=== PATIENT | male | born 1955 | race Caucasian/White ===

== ENCOUNTER 2016-05-29 12:54 | Inpatient (IN) | payer OTHER, MEDICAID ==
[2016-05-29] VITALS (13 sets, daily range): BP systolic 108–136; BP diastolic 65–90; PULSE 85–119; RESP 18–33; O2SAT 95–100
[~2016-05-29] VITALS: Ht 182.9 cm; Wt 82.6 kg
[~2016-05-29 12:54] MED LIST: ALBU1.25 IH; ALBU18HF INH; AMLO10TA3 PO; ATOR20TA PO; ATRINH INH; CARI350T PO; CHOL200025 PO; CLOP75TA3 PO; CYAN500 PO; DILT240C89 PO; FUR20 PO; GABA-504 PO; IPRA3AMP IH; LEVO50TA6 PO; LIDO5CRE17 TOPICAL; MAGN250T29 PO; OMEG-38 PO; OXYC-466 PO; PANT40TA3 PO; THIO300C PO; TRAZ-115 PO; VENL75TA87 PO
--- NOTE | 2016-05-29 12:54 | ED.REPORT ---
HPI-General Illness Date of Service May 29, 2016 ED Provider: aCryl Dela Cruz MD Patient is a 60 year old male w/ a hx of HTN, TIA, COPD and pneumonia who presents to the ED via EMS due to SOB. He has never been on a breathing machine or ventilator. The patient called EMS yesterday and was given a duoneb with improvement in his breathing and he declined transport. Today he had 4 albuterol nebulizers prior to calling the EMS. Prior to EMS administration of duoneb his O2 sat was 75-80 after was high 90s on 3L O2. The patient admits to a cough with recent change in sputum color to dark greenish consistency but denies fever. The patient denies chest pain, pleuritic pain. He has noticed some abdominal pain which is worse with palpation. Nursing Notes Stated Complaint: RESPIRATORY DISTRESS Chief Complaint: Respiratory Distress Nursing Notes Reviewed: Yes Allergies: Coded Allergies: No Known Allergies (Unverified Allergy, Unknown, 05/29/16) Scheduled Alpha Lipoic Acid (Alpha Lipoic Acid) 300 Mg Capsule 300 MG PO DAILY Amlodipine (Amlodipine) 10 Mg Tablet 10 MG PO DAILY Atorvastatin (Lipitor) 20 Mg Tablet 20 MG PO HS Cholecalciferol (Vitamin D3) (Vitamin D3) 2,000 Unit Tablet 4,000 UNIT PO DAILY Clopidogrel Bisulfate (Plavix) 75 Mg Tablet 75 MG PO DAILY Cyanocobalamin (Vitamin B12) 1,000 Mcg Tablet 1,000 MCG PO DAILY Diltiazem ER (Diltiazem ER) 240 Mg Cap.er.24h 240 MG PO DAILY Fluticasone Propionate (Fluticasone Propionate Nasal) 16 Gm [place].susp 1 SPRAY NS BID Fluticasone/Salmeterol (Advair Hfa 230-21 Mcg Inhaler) 12 Gm Hfa.aer.ad 2 PUFF IH BID Levothyroxine (Levothyroxine) 50 Mcg Tablet 50 MCG PO QAM Magnesium Oxide (Magnesium) 250 Mg Tablet 250 MG PO DAILY [place]-3/Dha/Epa/Fish Oil (Fish Oil 1,000 mg Softgel) 1 Each Capsule 1 EACH PO DAILY Pantoprazole DR (Pantoprazole DR) 20 Mg Tablet.dr 40 MG PO QAM Pregabalin (Lyrica) 50 Mg Capsule 150 MG PO TID Venlafaxine ER (Venlafaxine ER) 75 Mg Tab.er.24 150 MG PO QAM Venlafaxine ER (Venlafaxine ER) 75 Mg Cap.er.24h 225 MG PO HS Scheduled PRN Albuterol HFA (Proair HFA) 8.5 Gm Hfa.aer.ad 2 PUFFS INH q4-6 hours PRN PRN For Shortness of Breath Albuterol Neb Soln (Albuterol Neb Soln) 1.25 Mg/3 Ml Vial.neb 1 VIAL IH QID PRN PRN For Shortness of Breath Carisoprodol (Soma) 350 Mg Tablet 350 MG PO TID PRN PRN SPASMS Furosemide (Furosemide) 20 Mg Tab 10 MG PO DAILY PRN PRN edema Ipratropium/Albuterol Sulfate (Iprat-Albut 0.5-3(2.5) mg/3 mL Inhalant Soln) 3 Ml Ampul.neb 3 ML IH Q6 PRN PRN For Shortness of Breath Nicotine 14 mg/24 hr Patch (Nicotine 14 mg/24 hr Patch) 1 Each Patch.td24 1 PATCH TRANSDERM DAILY PRN PRN prn Trazodone (Trazodone) 50 Mg Tablet 50 MG PO HS PRN PRN For Insomnia Do not combine with alcohol. oxyCODONE-Acetaminophen 10-325 mg (oxyCODONE-Acetaminophen 10-325 mg) 1 Each Tablet 1 TABLET PO q5-6 hours PRN PRN For Pain General Time Seen by MD: 12:55 Chief Complaint Breathing problem Hx Obtained From: EMS Arrived By: Ambulance Sudden in Onset?: Yes Onset Occurred: Just prior to arrival Symptom Duration: Since onset Location: : Abdomen (diffuse ): Chest (substernal described as heavy) Quality: Heaviness Recent Healthcare: Previous diagnosis, Prior workup Similar Sx Previous: Yes (similar breathing symptoms) Past Medical History Past Medical History sleep apnea neuropathy neck injury No history of NH, PE, or blood clot Reports: COPD, GERD, Hyperlipidemia, Hypertension, Transient ischemic attack Reports: Atrial fibrillation, Thyroid disease Family History Mom: healthy. Dad: (unknown). Smoking History Current Every Day Smoker Social History Alcohol Use: Denies alcohol use Drug Use: Denies drug use Ambulatory Status Independent (can not walk 1 block without stopping due to shortness of breath) Review of Systems Full Review of Systems Constitutional: Denies: Chills, Fever Eyes: Denies: Blurred bilateral, Visual loss bilateral Ears / Nose / Throat: Denies: Hearing loss bilateral, Nasal congestion, Sore throat Respiratory: Reports: Dyspnea on exertion, Prod cough, green, Denies: Hemoptysis, Pleuritic pain Cardiovascular: Reports: Chest pain, Dyspnea on exertion, Denies: Edema, Palpitations GI: Reports: Abdominal pain, Denies: Bloody/tarry stool, Constipation, Diarrhea, Hematemesis, Hematochezia , Melena, Nausea, Vomiting Male: Denies Dysuria, Denies Hematuria Musculoskeletal: Denies: Extremity swelling, Myalgia Hematologic: Denies Bleeding, Denies Bruising Endocrine: Denies: Weight gain, Weight loss Skin: Reports Diaphoresis, Denies Itching, Denies Rash, Denies Unexplained bruises Allergy / Immune: Denies: Hives, Itching, Rhinorrhea Neurologic: Denies: Change LOC, Dizziness, Focal weakness, Headache, Lightheaded, Numbness, Slurred speech, Spinning sensation, Vision change Psychiatric: Denies: Change mental status, Confusion Complete sys rev & neg: except as marked. Physical Exam Vital Signs Vital Signs Date Time Temp Pulse Resp B/P Pulse Ox O2 Delivery O2 Flow Rate FiO2 05/29/16 15:23 36.4 93 22 113/72 98 Venturi Mask 6 05/29/16 15:03 93 22 113/72 98 Venturi Mask 6 05/29/16 14:42 98 25 108/77 98 Venturi Mask 6 05/29/16 14:11 95 25 113/70 98 Venturi Mask 6 05/29/16 13:43 96 20 126/84 100 Venturi Mask 05/29/16 13:41 98 28 98 OxyMask 3 05/29/16 12:53 36.4 119 33 136/86 100 7 Initial VS: Reviewed General/Constitutional: Awake, Alert, Not toxic appearing Distress / Hydration: Positive: Distress moderate Appearance / Presentation: Positive: Appears older than age, Debilitated, Frail , Ill appearing/not toxic Head / Eyes: Atraumatic, Normocephalic, PERRL, EOMI, Conjunctiva NL ENT: Airway patent, Mucous membranes moist, Pharynx NL Neck: Supple, No meningismus, Full range of motion, No swelling, Non-tender, No masses, No JVD, No tracheal deviation Respiratory / Chest: No rhonchi, No stridor, No chest tenderness, No chest wall deformity Resp Distress / Stridor: Positive: Resp distress severe Diminished Breath Sounds: Positive: Decreased bilateral Wheezing / Retractions: Positive: Accessory muscle use sev, Intercostal retractions, Retractions severe, Wheezing mild Cardiovascular: Regular rhythm, Heart sounds NL, No murmurs, Cap refill not delayed, Peripheral circulation NL, Pulses = bilaterally Heart Rate / Rhythm: Positive: Tachycardia no bilateral leg edema Abdomen: Soft, No rebound, BS normoactive, No distention, No palpable mass, No pulsatile mass Tenderness/Guarding/Rebound: Positive: Guarding voluntary, Tender diffuse Organomegaly / Mass / Hernia: Negative: Aortic bruit, Hepatomegaly, Mass present, Pulsatile mass, Splenomegaly Upper Extremities Upper Extremity / MS: Inspection NL, No swelling, Non-tender, No erythema, No deformity, Neurologic intact, Vascular intact Wrist / Hand: No swelling mild clubbing of nails bilaterally Lower Extremity / Pelvis / MS: Inspection NL, No swelling, Non-tender, No erythema, No deformity, Neurologic intact, Vascular intact, No edema Skin: Color NL, No rash, Warm, Turgor NL, No swelling Color / Condition: Positive: Diaphoresis present Neurologic: Oriented X3, No motor deficits, CN II - XII intact only able to speak in short sentences due to SOB Interpretation & Diagnostics Lab Results Interpretation Result Diagram: 05/30/16 0220 05/30/16 0855 Test 05/29/16 13:08 Hemoglobin A1c 5.3% (4.8-5.6) Pro-B-Type Natriuretic Peptide 1004pg/mL (0-210) Procalcitonin 0.09ng/mL (0.00-0.08) Thyroid Stimulating Hormone (TSH) 1.410uIU/mL (0.450-4.500) X-Ray Chest Interpretation Chest Xray Interpretation: IMPRESSION: Lung volumes are increased suggesting COPD, correlate with pulmonary functions test. Dictated by: Sergio WEBB Interpreted: Jerica Rodas MD on 05/29/2016 at 13:23 Transcribed by: DOTTIE on 05/29/2016 at 13:24 Interpretation / Wet Read by: Interpret - Radiologist Re-Eval/Medical Decision Med Decision/Clinical Course 60yoM with COPD, TIA, and Afib presents with stubsternal chest heaviness with SOB and increased sputum production. Physical exam has tachypnea with decreased breath sounds bilaterally with use of accessory muscles, tachycardia without murmur good pulses in extremities without cyanosis or edema. Labs show leukocytosis, mild hypernatremia, elevated troponin and pro-BNP, mild elevated procalcitonin, and lactic acidosis. ABG shows normal pH with normal CO2 and mild decreased O2 and normal bicarb consistent with respiratory alkalosis and metabolic acidosis. Patient has clinic signs of COPD exacerbation and will be started on Methylprednisolone 125mg as well as Rocephin and Zithromycin for possible bacterial infection component. Elevated troponin without EKG changes consistent with NSTEMI, spoke with cardiology and patient is not considered a coronary angiography/angioplasty candidate due to his severe COPD with continued smoking. Patient is already on Plavix daily for TIA started on Heparin drip for 24 hours and start aspirin for dual platelet therapy. Patient should also be continued on PPI for GI bleeding risk. Admit to medicine for COPD and consider stress test when COPD controlled. Source of Hx: Old records, EMS, Family Consultation : Referral / Consult Name: Logan Ornelas MD Consulted With: Hospitalist Call Returned at: 14:20 Plan Rep: Agrees with eval, Agrees with plan Note: Case discussed. Counseled Regarding: Diagnosis, Lab results, Need for follow-up, Need for admission Discharge & Departure Primary Impression: COPD exacerbation Additional Impressions: NSTEMI (non-ST elevated myocardial infarction) Metabolic acidosis Respiratory failure Pneumonia Sepsis Ruled Out: Stroke Disposition: ADMITTED TO HOSPITAL Discharge Condition All VS Reviewed: Yes Condition: Critical Referrals: Kaleb Billings DO (PCP) Crit Care Except Billable Proc Time Spent: 30-74 minutes Services Performed: Patient management by me, Time spent at bedside, Reviewing test results, Reviewing imaging, Discussing patient care, Documentation in record, Time with fam/surrogate Attending Statement patient seen and examined upon arrival in the ED with a [facility] team called. Discussed care, and plan with Dr Moody with direct and immediate oversight of critical care time -decisions, order and intervention. Presented with acute respiratory distress with fairly rapid turn around with multiple nebulizers. Initial presumed dx was CAP, possible sepsis in the setting of acute COPD exacerbation. Nebs, fluids, abx, cultures, ABG and possibility of progression to intubation started. Routine workup also reveals an NSTEMI. Hep gtt started and cardiology involved. Suspect initial event was severe respiratory distress due to acute COPD exacerbation causing excess hypoxia and creating excessive demand and eventual cardiac ischemia that exacerbated the respiratory issues. Initial procalcitonin does not suggest severe infection - will need to sort this out as an inpt with abx started in the ER on arrival. discussion of CODE and intubation status on arrival. Pt would agree to BIPap but would want to discuss intubation further, even in light of imminent respiratory failure or . Agree with aggressive multifactorial initial approach and plan. copies to: Kaleb Billings Shawna L MD May 29, 2016 12:54 BRUNA MENDOZA May 29, 2016 13:01 Edy Moody DO May 29, 2016 15:28 108U/L (25-150) Troponin T 0.145ug/L (0.0-0.011) Pro-B-Type Natriuretic Peptide 1004pg/mL (0-210) Total Protein 7.1g/dL (6.4-8.4) Albumin 4.5g/dL (3.4-5.0) Procalcitonin 0.09ng/mL (0.00-0.08) X-Ray Chest Interpretation Chest Xray Interpretation: IMPRESSION: Lung volumes are increased suggesting COPD, correlate with pulmonary functions test. Dictated by: Sergio Rosales RRA Interpreted: Jerica Rodas MD on 05/29/2016 at 13:23 Transcribed by: DOTTIE on 05/29/2016 at 13:24 Interpretation / Wet Read by: Interpret - Radiologist Re-Eval/Medical Decision Med Decision/Clinical Course 60yoM with COPD, TIA, and Afib presents with stubsternal chest heaviness with SOB and increased sputum production. Physical exam has tachypnea with decreased breath sounds bilaterally with use of accessory muscles, tachycardia without murmur good pulses in extremities without cyanosis or edema. Labs show leukocytosis, mild hypernatremia, elevated troponin and pro-BNP, mild elevated procalcitonin, and lactic acidosis. ABG shows normal pH with normal CO2 and mild decreased O2 and normal bicarb consistent with respiratory alkalosis and metabolic acidosis. Patient has clinic signs of COPD exacerbation and will be started on Methylprednisolone 125mg as well as Rocephin and Zithromycin for possible bacterial infection component. Elevated troponin without EKG changes consistent with NSTEMI, spoke with cardiology and patient is not considered a coronary angiography/angioplasty candidate due to his severe COPD with continued smoking. Patient is already on Plavix daily for TIA started on Heparin drip for 24 hours and start aspirin for dual platelet therapy. Patient should also be continued on PPI for GI bleeding risk. Admit to medicine for COPD and consider stress test when COPD controlled. Source of Hx: Old records, EMS, Family Consultation : Referral / Consult Name: Logan Ornelas MD Consulted With: Hospitalist Call Returned at: 14:20 Plan Rep: Agrees with eval, Agrees with plan Note: Case discussed. Counseled Regarding: Diagnosis, Lab results, Need for follow-up, Need for admission Discharge & Departure Primary Impression: COPD exacerbation Additional Impressions: NSTEMI (non-ST elevated myocardial infarction) Metabolic acidosis Ruled Out: Stroke Disposition: ADMITTED TO HOSPITAL Discharge Condition All VS Reviewed: Yes Condition: Critical Referrals: Kaleb Billings DO (PCP) copies to: Kaleb Billings Shawna L MD May 29, 2016 12:54 BRUNA MENDOZA May 29, 2016 13:01 Edy Moody DO May 29, 2016 15:28
[2016-05-29] MEDS ORDERED: 0.9% Sodium Chloride 1,000 ML IV ONE (13:01)
[2016-05-29] MEDS ORDERED: MethylprednisoLONE Sodium Succinate 62.5 mg/mL 2 mL Inj IVPUSH ONE (13:05)
[2016-05-29] MEDS ORDERED: Albuterol-Ipratropium 3 mL Inhalation Solution NEB ONE (13:05)
[2016-05-29] MEDS ORDERED: Azithromycin Inj 500 MG in Dextrose 5% w/Vial Mate 250 ML IV ONE (13:05)
[2016-05-29] MEDS ORDERED: Magnesium Sulf 2 Gm/50mL Water 2 GM in IV Premix 1 EACH IV ONE (13:05)
[2016-05-29] MEDS ORDERED: cefTRIAXone Inj 2,000 MG in Dextrose 5% Minibag Plus 50 ML IV ONE (13:05)
[2016-05-29 13:12] LABS: BASOPHILS % (AUTO) 0.2 % (0-3); EOSINOPHILS % (AUTO) 0.7 % (0-5); MONOCYTES % (AUTO) 12.6 % (4-12); Mean Corpuscular Hemoglobin 29.2 pg (27.0-35.0); Mean Corpuscular Volume 91.1 fL (81-100); NEUTROPHILS % (AUTO) 67.7 % (40-74); Platelet Count 279 bil/L (150-400)
--- NOTE | 2016-05-29 13:24 | DRSVH ---
PROCEDURE: X-RAY CHEST ONE VIEW, PORTABLE ([id number]) INDICATIONS: pnuemonia TECHNIQUE: One view of the chest was acquired. COMPARISON: [facility], CR, XR CHEST 2VW, 07/07/2015, 12:32. FINDINGS: Surgical changes and devices: None. Lungs and pleura: No pleural effusions or pneumothorax. Lungs are clear. Lung volumes are increase d with flattening of the hemidiaphragms suggesting COPD. Mediastinum: Mediastinal contours appear normal. Heart size is normal. Bones and chest wall: No suspicious bony lesions. Overlying soft tissues appear unremarkable. IMPRESSION: Lung volumes are increased suggesting COPD, correlate with pulmonary functions test. Dictated by: Sergio Rosales RRA Interpreted: Jerica Rodas MD on 05/29/2016 at 13:23 Transcribed by: DOTTIE on 05/29/2016 at 13:24 Approved by: Jerica Rodas MD, PhD on 05/29/2016 at 17:02
--- NOTE | 2016-05-29 13:39 | ABG ---
DateTimeAnalyzed 13:34:00 -_ pH ____7.410 - 7.350 7.450 pCO2 ___44.6__ -mmHg 35.0 45.0 pO2 ___72.4__ -mmHg 69.0 116 HCO3- ___27.7__ -mmol/L 22.0 26.0 ABE ____3.1__ -mmol/L -2.0 2.0 tHb ___13.2__ -g/dL O2Hb ___88.0__ -% COHb ____7.7__ -% MetHb ____0.9__ -% sO2 ___96.3__ -% 25.0 FIO2 ___40.0__ -% Drawn By MT - Date/Time Notified____ 13:39:00 -_ Liter_Flow ____3.0__ -L/min Oxygen Device 1 __OXYMASK - Notified By JJ - Notified Whom DO HASANDRAS - B 748 -mmHg tO2 ___16.4__ -Vol% Herber test _Positive -
[2016-05-29 13:58] LABS: Magnesium 2.2 mg/dL (1.6-2.6)
[2016-05-29 14:00] LABS: TROPONIN T 0.145 ug/L (0.0-0.011)
[2016-05-29] MEDS ORDERED: Heparin 25K Unit/500mL 0.45 NS 25,000 UNIT in IV Premix 1 EACH IV SCH ×2 (14:20→14:55)
[2016-05-29] MEDS ORDERED: Heparin 5,000 Unit/mL Inj IVPUSH PRN (14:20)
[2016-05-29] MEDS ORDERED: 0.9% Sodium Chloride 1,000 ML IV SCH (14:46)
[2016-05-29] MEDS ORDERED: Alum-Mag Hydrox-Simeth 30 mL Suspension PO PRN (14:50)
[2016-05-29] MEDS ORDERED: Ondansetron 2 mg/mL 2 mL Inj IVPUSH PRN (14:50)
[2016-05-29] MEDS ORDERED: Atropine 1 mg/10 mL (Code) Syringe IVPUSH PRN (14:50)
--- NOTE | 2016-05-29 15:26 | PCM.HPMED ---
Subjective Date of Service May 29, 2016 Primary Provider: Admitting Physician: Primary Care Physician: Kaleb Billings DO Attending Physician: Admit Status: From the Emergency Department, Full Admit Chief Complaint: Chest Pain, Shortness of Breath History of Present Illness: Patient is a year old male with a past medical history of Essential Hypertension , Hyperlipidemia, Transient Ischemic Attack, COPD, GERD, Atrial Fibrillation, Chronic Back Pain, and Tobacco Use Disorder. He presents to the ER at [facility] complaining of shortness of breath and chest pain. Pt states his symptoms began last night. Pt states his symptoms awoke him from sleep. He states his symptoms began with shortness of breath. He denies any recent cough, fever or chills. He states he got up from bed to go to the restroom, and developed a cramping heavy pain in the center of his chest. He reports this pain is non radiating. Pt states the pain was associated with significant diaphoresis. He denies any associated nausea, vomiting, palpitations, dizziness, and abdominal pain. Pt states the pain went away last night after a few minutes, and he again developed the pain early this morning along with shortness of breath. Pt has no other complaints or concerns at this time. Review of Systems: All systems reviewed and are negative except for what has already been mentioned in the HPI. Allergies Coded Allergies: No Known Allergies (Unverified Allergy, Unknown, 05/29/16) Home Medications 1. Diltiazem 2. Albuterol 3. Plavix 4. Aspirin 5. Duo-Neb 7. Amlodipine 8. Pantoprazole 9. Atorvastatin 10. Gabapentin 11. Levothyroxine 12. Effexor PMH 1. Essential Hypertension 2. Atrial Fibrillation 3. Hyperlipidemia 4. Hypothyroidism 5. COPD 6. Tobacco Use Disorder 7. Depression 8. GERD 9. Chronic Back Pain Family History Mother - No known medical problems Father - in 60s, unknown cause Social History Hx Alcohol Use: No Hx Substance Use: Yes (edible cannabis- occasionally) Hx Tobacco Use: Yes Smoking Status: Current Every Day Smoker, Light Tobacco Smoker Living Arrangement: with Family Exam Vital Signs Vital Sign - Last Date Time Temp Pulse Resp B/P Pulse Ox O2 Delivery O2 Flow Rate FiO2 05/29/16 14:42 98 25 108/77 98 Venturi Mask 6 05/29/16 12:53 36.4 Exam GENERAL: NAD, Pt laying in bed comfortably HEENT: AT/NC, PERRLA, EOMI, Mucus Membranes are moist CARDIAC: RRR; No M/R/G PULM: Left basilar wheezes present, right lung is clear to auscultation ABD: Soft, Nontender, Nondistended, Positive bowel sounds in all quadrants, No Hepatosplenomegaly appreciated EXT: No C/C/E; No calf tenderness bilaterally SKIN: Warm, Dry, [place], and Intact NEURO: Alert and oriented x3; Following all commands PSYCH: Normal mood and affect Lab and Diagnostics Result Diagram: 05/29/16 1308 05/29/16 1308 X-Rays, CTs and MRIs X-RAY CHEST ONE VIEW, PORTABLE INDICATIONS: pnuemonia TECHNIQUE: One view of the chest was acquired. COMPARISON: [facility], CR, XR CHEST 2VW, 07/07/2015, 12:32. FINDINGS: Surgical changes and devices: None. Lungs and pleura: No pleural effusions or pneumothorax. Lungs are clear. Lung volumes are increased with flattening of the hemidiaphragms suggesting COPD. Mediastinum: Mediastinal contours appear normal. Heart size is normal. Bones and chest wall: No suspicious bony lesions. Overlying soft tissues appear unremarkable. IMPRESSION: Lung volumes are increased suggesting COPD, correlate with pulmonary functions test. Assessment & Plan Patient is a 60 year old male with a past medical history of Essential Hypertension, Atrial Fibrillation, TIA, COPD, Tobacco Use Disorder, GERD, and Chronic Back Pain. 1. Non ST-Elevation VA - Admit to PCU - Start Aspirin daily - Continue home Plavix - Troponin is positive - Check CKMB and Troponin q 6 hours x4 - Telemetry monitoring - Start Metoprolol 12.5 mg PO BID - SL Nitroglycerin PRN chest pain - IV Morphine PRN for refractory chest pain - Supplemental O2 to keep SpO2 greater than 92% - Start Atorvastatin 80 mg PO daily - Check fasting lipid panel in AM - Start Heparin drip - Cardiology on board and does not feel pt requires a cardiac catheterization at this time - Will order an ECHO - Will order a NM stress test for the AM - NPO after midnight for stress test 2. COPD, Acute Exacerbation - Start IV Solu-Medrol 125 mg q 6 hours - Duo-Neb breathing treatments q 6 hours scheduled - Supplemental O2 to keep SpO2 greater than 92% 3. Hypernatremia - Free Water Deficit calculated at 2.0 liters - Will give pt D5W at 140 mL/hour for 14 hours - Recheck BMP in AM 4. Essential Hypertension - Pts home medications have not yet been reconciled - Restart home meds once reconciliation completed 5. Atrial Fibrillation, Paroxysmal - Pt is on Diltiazem at home, per notes in [facility] - Restart home meds once medication reconciliation complete 6. Hyperlipidemia - Pt started on Atorvastatin 80 mg PO daily - Check fasting lipid panel in AM 7. Hx of TIA - Continue home Plavix 8. Hypothyroidism - Continue home Synthroid once medication reconciliation completed 9. GERD - IV Famotidine CODE STATUS: FULL, per discussion with patient at bedside Cholo Haji MD May 29, 2016 15:26
[2016-05-29] MEDS: Sodium Chloride LOK Flush 10 mL Syringe IVFLUSH SCH ×2 (16:09→20:15)
[2016-05-29] MEDS: Dextrose 5% 1,000 ML IV SCH ×2 (16:16→22:42)
[2016-05-29] MEDS ORDERED: PREG50CA PO (16:30)
[2016-05-29] MEDS ORDERED: FLUT16SP NS (16:32)
[2016-05-29] MEDS ORDERED: TRAM50TA2 PO (16:42)
[2016-05-29] MEDS ORDERED: PANT20TA2 PO (16:42)
[2016-05-29] MEDS ORDERED: FLUT12AE6 IH (16:42)
[2016-05-29] MEDS ORDERED: VENL75CA95 PO (16:42)
[2016-05-29] MEDS ORDERED: NICO1PAT5 TRANSDERM (16:42)
--- NOTE | 2016-05-29 17:47 | NUR ---
Arrived He arrived at 1545 and was able to slide himself from the gurney to the bed. He had some shortness of breath with activity and occasionally at rest when anxious. He was settled into his room and shown how to use the call light and work the bed controls. Due to his fatigue and being a somewhat poor historian his admit and medical history will be completed by his who just arrived a few minutes ago. Care continues.
[2016-05-29] MEDS ORDERED: Albuterol 2.5 mg/3 mL Inhalation Solution NEB PRN (18:35)
[2016-05-29] MEDS: Albuterol-Ipratropium 3 mL Inhalation Solution NEB SCH (20:00)
[2016-05-29] MEDS: Famotidine Inj 50 ML IV SCH (20:14)
[2016-05-29] MEDS: MethylprednisoLONE Sodium Succinate 62.5 mg/mL 2 mL Inj IVPUSH SCH (20:15)
--- NOTE | 2016-05-29 20:28 | NUR ---
Tremulous Pt has restless legs. He is very tremulous. He states this has been going on 'since he got here' due to the treatments. He states, "They've been pumping full of albuterol" He denies pain. He is compliant with his call light. Care ongoing.
[2016-05-29 20:29] LABS: APPEARANCE,URINE CLEAR (CLEAR,HAZY); COLOR,URINE STRAW (YELLOW)
[2016-05-29 20:30] LABS: OCCULT BLOOD,URINE SMALL (NEGATIVE); PH,URINE 6.5 (5.0-8.0); UROBILINOGEN,URINE NORMAL (NORMAL)
[2016-05-29] MEDS: Heparin 5,000 Unit/mL Inj IVPUSH PRN (21:50)
--- NOTE | 2016-05-29 22:12 | CONS ---
[address] [address] CONSULTATION REPORT PATIENT: MEAGAN ABBOTT : 1955 MR#: [id number] ADMIT: 05/29/2016 JOB ID: [id number] DATE OF SERVICE: CHIEF COMPLAINT: Chest discomfort, shortness of breath. REFERRED BY: Miguel Haji MD. HISTORY OF PRESENT ILLNESS: This is a very pleasant gentleman with known history of severe COPD, prior TIAs and chronic tobacco use. He came to the emergency department complaining of shortness of breath which began yesterday. Last night, he also noted some discomfort in his chest. It was accompanied by diaphoresis. He describes it as heaviness. Currently, he is pain free. He is denying any chest discomfort, pressure, tightness. He states that he is used to shortness of breath. He is chronically short of breath. He uses home oxygen. His functional capacity is severely limited. He can barely walk 20 feet without getting short of breath. However, the chest discomfort he experienced yesterday was new. He was admitted to the hospital with exacerbation of chronic obstructive pulmonary disease. Routine blood work showed mildly elevated troponin. I was asked to see him in consultation. REVIEW OF SYSTEMS: Comprehensive review of system was done and is unremarkable. Pertinent negatives are no GI or bleeding. His TIA episode was over seven years ago when he presented with numbness in his face. There is no history of loss of limb control. MEDICATIONS AT HOME: Diltiazem, albuterol, Plavix, aspirin, DuoNebs, amlodipine, pantoprazole, atorvastatin, gabapentin, Synthroid, . PAST MEDICAL HISTORY: Hypertension, atrial fibrillation, dyslipidemia, hypothyroidism, COPD, depression, GERD and chronic back issues. PERSONAL HISTORY: Nondrinker. He smokes about half a pack a day. 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 He used to smoke two packs a day. FAMILY HISTORY: Noncontributory. PHYSICAL EXAMINATION: A middle-aged man who looks older than his stated age, in moderate respiratory distress, breathing at around 30 per minute. Can speak short sentences. Neck: Supple, using accessory muscles. No JVD. Chest: Occasional wheezes. Heart sounds: S1, S2 are regular. No gallops. Abdomen: Soft. Extremities: Negative for CCE. Abdomen: Mild epigastric tenderness. Extremities: Dorsalis pedis is bilaterally palpable. Chest x-ray suggestive of pneumonia. Lab data reviewed. Creatinine is normal. White count is elevated at 16.3. Troponin as mentioned was mildly elevated. ASSESSMENT AND PLAN: This gentleman presents with exacerbation of chronic obstructive pulmonary disease. His mildly elevated troponin could be a result of demand ischemia or a [id number] myocardial infarction. At this point, I would recommend treating his COPD and possible underlying pneumonia. Once he is stable from his lung disease, a stress test may be requested. If the stress test shows large area of ischemia I would rediscuss with the patient the issue of interventional approach. Otherwise, I would recommend continued management with conservative measures. I have discussed this with the patient. He is not inclined to quit smoking. He states he enjoys smoking. Given his severe COPD and ongoing smoking I feel that his long-term prognosis is going to be dictated by his underlying lung disease and not his coronary artery disease; and hence, I would recommend medical therapy for his coronary artery disease. I would be happy to follow the patient along with you.
[2016-05-29 22:27] LABS: TROPONIN T 0.133 ug/L (0.0-0.011)
--- NOTE | 2016-05-29 22:32 | NUR ---
Restlessness Pt reports, "I'm jumping out of my skin" He is visibly agitated. VS taken. BP 125/65. HR 85. RR 32 95% on 3L oxymask. Pt takes PRN oxycodone, trazodone, and tramadol as well as scheduled lyrica. Reported symptoms and medications to night MD Medications ordered. Pt updated on cares.
[2016-05-29] MEDS: oxyCODONE-Acetamin 10-325 mg Tablet PO PRN (23:41)
--- NOTE | 2016-05-29 23:50 | NUR ---
Pain Pt reports neck pain of a 4. Given one percocet. Pt understands he is NPO after MN for tests. Appears less restless. He states he is starting to 'feel better" Care ongoing
[2016-05-30] VITALS (13 sets, daily range): BP systolic 112–142; BP diastolic 60–87; PULSE 60–118; RESP 18–28; O2SAT 91–98
[2016-05-30] MEDS: Albuterol-Ipratropium 3 mL Inhalation Solution NEB SCH ×4 (02:12→20:41)
[2016-05-30] MEDS: MethylprednisoLONE Sodium Succinate 62.5 mg/mL 2 mL Inj IVPUSH SCH ×3 (02:33→18:06)
--- NOTE | 2016-05-30 02:43 | NUR ---
Dyspnea/Anxiety Pt awakened from sleep for lab draws. He became very panicky stating "I can't breathe" after using the urinal. Diaphoretic. Soaked gown with sweat. RT here and gave neb treatment (scheduled) Pt's breath sounds are decreased with exp wheezing. VS stable.Reported symptoms and vitals to MD. Pt is currently sitting up at 90degrees. Eyes closed. Appears more relaxed.
[2016-05-30 02:49] LABS: BASOPHILS % (AUTO) 0 % (0-3); EOSINOPHILS % (AUTO) 0 % (0-5); MONOCYTES % (AUTO) 2.1 % (4-12); Mean Corpuscular Hemoglobin 28.9 pg (27.0-35.0); Mean Corpuscular Volume 89.4 fL (81-100); NEUTROPHILS % (AUTO) 88.9 % (40-74); Platelet Count 240 bil/L (150-400)
[2016-05-30] MEDS ORDERED: Nitroglycerin 2% 1 Gm Ointment TOPICAL ONE (02:50)
[2016-05-30] MEDS: Heparin 5,000 Unit/mL Inj IVPUSH PRN (03:31)
[2016-05-30 03:53] LABS: TROPONIN T 0.081 ug/L (0.0-0.011)
--- NOTE | 2016-05-30 05:23 | NUR ---
Resp Pt resting quietly. HOB at 30degrees. Non distressed breathing. Will cont to monitor
[2016-05-30] MEDS ORDERED: 0.9% Sodium Chloride 250 ML ONE (09:29)
[2016-05-30] MEDS: Famotidine Inj 50 ML IV SCH ×2 (09:53→20:46)
[2016-05-30] MEDS: Sodium Chloride LOK Flush 10 mL Syringe IVFLUSH SCH ×2 (09:53→17:13)
[2016-05-30] MEDS: oxyCODONE-Acetamin 10-325 mg Tablet PO PRN ×3 (09:54→20:47)
--- NOTE | 2016-05-30 10:35 | DRSVH ---
[facility] [address] [place] [address] Echocardiogram Report Name: MEAGAN ABBOTT Date: Height: 72 in Hospital Exam Location: [facility] Weight: 189 lb Gender: Male BSA: 2.1 m2 : 1955 Age: 60 yrs BP: 131/87 mmHg Reason For Study: CHEST PAIN, NSTEMI Ordering Physician: HOSPITALIST [facility] Performed By: Jacque lord Referring Physician: DR. Volodymyr ORNELAS, DR. WONG Interpretation Summary Left ventricular size is at the upper limits of normal. There is mid anterolateral wall hypokinesis. There is apical lateral wall hypokinesis. Left ventricular ejection fraction is estimated to be .55. There is mild tricuspid regurgitation. The right ventricular systolic pressure is estimated at 36 mmHg assuming a right atrial pressure of 8 mm Hg. There is no significant valvular heart disease. Procedure: A two-dimensional transthoracic echocardiogram with color flow and Doppler was performed. The study quality was technically adequate. There is no prior echocardiogram noted for this patient. The patient was very SOB and unable to adjust breathing without coughing. The patient was in sinus during the exam. Left Ventricle: There is normal left ventricular wall thickness. Left ventricular size is at the upper limits of normal. Left ventricular ejection fraction is estimated to be .55. There is mid anterolateral wall hypokinesis. There is apical lateral wall hypokinesis. Right Ventricle: The right ventricle is normal in size and function. Atria: Both atria are normal in size. There is no Doppler evidence for an atrial septal defect. Mitral Valve: The mitral valve leaflets appear normal. There is no evidence of stenosis, fluttering, or prolapse. There is trace mitral regurgitation. Aortic Valve: The aortic valve is trileaflet. The aortic valve opens well. No aortic regurgitation is present. Tricuspid Valve: The tricuspid valve leaflets are thin and pliable. There is mild tricuspid regurgitation. The right ventricular systolic pressure is estimated at 36 mmHg assuming a right atrial pressure of 8 mm Hg. Pulmonic Valve: The pulmonic valve is not well seen, but is grossly normal. There is no pulmonic valvular regurgitation. Great Vessels: The aortic root is mildly dilated. The ascending aorta is mildly enlarged. The pulmonary artery is normal size. The IVC is dilated (diameter is greater than 2.1 cm) yet it collapses greater than 50% with a sniff. This suggests a right atrial pressure of 8 mm Hg. Pericardium/ Pleura There is no pericardial effusion. There is no pleural effusion. MMode/2D Measurements & Calculations LVIDd: 5.8 cm LA dimension: 3.5 cm RA long axis LVOT diam LVIDs: 3.3 cm FS: 42.7 % LA A2 area: 22.7 cm RA area AoV Opening EPSS: 0.51 cm LA A4 area: 21.9 cm IVSd: 0.97 cm LA length (vol): 5.8 cm: 19.4 cm Ao root diam LVPWd: 1.1 cm LA vol: 73.5 ml RA vol LA vol index : 58.2 ml asc Aorta RA Diam: 3.8 cm : 28.0 mm/ IVC diam: 2.6 cm RVDd major : 7.4 cm LV carlson. diameter/BSA LV sys. diameter/BSA RVD1 (basal) RVD2 (mid) (cm/m^2): 2.8 (cm/m^2): 1.6 : 3.3 cm Doppler Measurements & Calculations Ao V2 max MV E max adriel MV E/A: 1.7 TR max adriel : 144.5 cm/sec : 78.4 cm/sec Med Peak E' Adriel : 263.7 cm/sec Ao max P.4 mmHg MV A max adriel TR max PG Ao mean P.4 mmHg : 45.8 cm/sec E/E' med: 9.3 : 27.8 mmHg LVOT Max Adriel MV P1/2t Lat Peak E' Adriel PA V2 max : 111.7 cm/sec : 75.8 msec : 104.7 cm/sec LACHELLE(I,D): 3.7 cm E/E' lat: 9.0 PA mean PG sev ratio: 0.78 E/e' average: 9.2 MV A dur: 0.14 secPA Accel Time : 0.15 sec MV P1/2t max adriel Ao V2 mean LV V1 max PG PA V2 mean : 100.4 cm/sec : 66.9 cm/sec MVA(P1/2t): 2.9 cm2 Ao V2 VTI: 29.5 cmLV V1 VTI: 23.1 cm LACHELLE(V,D): 3.7 cm2 LACHELLE indexed to BSA (cm^2/m^2): 1.8 Electronically signed by: Logan Ornelas on Reading Physician:05/30/2016 10:34 AM
[2016-05-30] MEDS: Polyethylene Glycol (PEG) 17 Gm Powder PO PRN (10:37)
[2016-05-30] MEDS: cefTRIAXone Inj 2,000 MG in Dextrose 5% Minibag Plus 50 ML IV SCH (10:39)
[2016-05-30] MEDS: Azithromycin Inj 500 MG in Dextrose 5% w/Vial Mate 250 ML IV SCH (11:35)
--- NOTE | 2016-05-30 11:45 | NUR ---
Tele HR Pt was in NSR this am with an inverted T wave, HR 63. Gave scheduled am dose of 12.5 Metoprolol. HR is now in the high 40's-50's with a more pronounced peaked inverted T wave. Cardiology had already looked at his rhythm this am but will inform MD and cardiology of changes. Pt is resting comfortably in bed sound asleep.
--- NOTE | 2016-05-30 12:54 | PCM.PNCARD ---
Subjective Date of service May 30, 2016 Chief Complaint Dyspnea and chest pain History of Present Illness Mr Garcia -is a 60 year-old male with long-standing history of COPD secondary to 40+ years of tobacco use. Remote history is significant for TIA (reportedly in the last 10 years) and possible atrial fibrillation for which patient does not remember specifics. Patient claims he is on home oxygen and has very limited ability to exercise or walk secondary to his breathing. Patient presented to the emergency room with exacerbation of COPD and transient chest pressure. Patient was found to have slightly elevated troponins along with his dyspnea. Subjective: #General- patient denies fever or chills or recent infections. #HEENT- admits to mild occipital headache especially with coughing, denies visual change, sore throat, nasal congestion, ear pain. #Neck- has chronic neck pain, no difficulty swallowing. #Chest- patient admits to significant shortness of breath, improved since admission. No significant sputum production, mild cough is present. #Cardiovascular- currently denies chest pain, palpitation, edema, lightheadedness or dizziness, syncope. #Abdomen- patient admits to mild right sided abdominal discomfort, admits to constipation. No nausea or vomiting. Appetite mildly depressed. #Musculoskeletal- chronic neck discomfort. #Neurologic- no significant focal issues #Integument- denies rash or lesion. #Psychiatric- no acute issues, he admits to prostration with recurrent respiratory distress and history of tobacco. Exam Vital Signs Vital Sign - Last Date Time Temp Pulse Resp B/P Pulse Ox O2 Delivery O2 Flow Rate FiO2 05/30/16 10:59 60 05/30/16 09:58 36.5 22 119/60 91 OxyMask 3.00 Intake and Output 05/29/16 05/29/16 05/30/16 Cumulative From/Thru 15:00 23:00 07:00 05/29/16 12:53 - 05/30/16 05:49 Intake Total 1000 ml 484 ml 1920 ml 3404 ml Output Total 800 ml 3400 ml 4200 ml Balance 1000 ml -316 ml -1480 ml -796 ml Intake Oral 0 ml 300 ml 300 ml IV Total 1000 ml 484 ml 1620 ml 3104 ml Output Urine Total 800 ml 3400 ml 4200 ml # Bowel Movements 0 0 Additional Information: #General- vision sitting comfortably in bed on oxygen mask in no apparent distress though respirations are rapid. #HEENT- eyes are clear, pupils dilated bilaterally but responsive, pharynx thick postnasal drip minimal erythema mucosa moist face symmetric #Neck supple without significant adenopathy, nontender #Chest- breathing with the assistance of supplemental O2 /mask ,chest wall symmetrical, lungs are are clear at time of exam, the crackles wheezes or rubs. No retractions, respiratory rate some weight elevated. #Cardiovascular- heart is regular rate and rhythm, heart sounds are somewhat distant, no obvious murmur or gallop. Distal pedal pulses 2+ bilaterally, no significant edema, no JVD appreciated. #Abdominal - soft without mass, mild tenderness right upper and lower quadrants without rebound. #Neurologic- alert and oriented 4, cranial nerves II through XII grossly intact , pupils are dilated bilaterally, extremities are nonfocal. #Psychiatric- no mood appears stable and appropriate. #Integument- benign without obvious rash or lesion. Lab and Diagnostics Labs Troponin 0.106 (up from 0.081) Cholesterol: Total, 136, triglycerides 47, LDL 48.6, HDL 78. CKMB 9.1 (8.9) Result Diagram: 05/30/1621905/30/16219 12-lead ECG EKG from the chart shows nonspecific T-wave changes laterally, borderline first- degree AV block, borderline prolonged QT. No other acute ischemic changes appreciated. Additional Diagnostics: Echocardiogram- interpretive summary LV upper limits of normal, positive mid anterior/lateral hypokinesis, EF 55%. Mild TR, RV systolic pressure 36 mmHg, RA pressure assumed 8 mmHg. No other significant valvular disease. Assessment & Plan Assessment This is a 60-year-old male with long-standing history of tobacco use with subsequent COPD with multiple exacerbations. Recent exacerbations associated with chest pain transiently prior to hospital. Troponins are elevated, etiology not completely clear but epicardial heart disease should be ruled out versus demand ischemia. Patient has remote history of TIA he thinks in the last 8-10 years. Also question of remote history of atrial fibrillation though I have no records to support this and patient does not specifically recall. Problems: Plan #COPD- management per hospitalist, patient appears to be stabilizing and improving with current therapies. #Rule out ischemic heart disease-plan is to have patient undergo stress testing once his respiratory issues are stable. Continue with Plavix, aspirin, atorvastatin, metoprolol. Dr. Ornelas also evaluate patient Attending Statement EKG and echo suggestive of A/L ischemia. Continue med mm for now, continue Heparin/Lovenox, will review stress test. Ike Zambrano PA-C May 30, 2016 12:20 Logna Ornelas MD May 30, 2016 14:54
[2016-05-30 13:29] LABS: Magnesium 2.3 mg/dL (1.6-2.6)
[2016-05-30 13:30] LABS: TROPONIN T 0.108 ug/L (0.0-0.011)
--- NOTE | 2016-05-30 13:46 | PCM.PNMED ---
Subjective Date of Service May 30, 2016 Subjective Patient is a year old male with a past medical history of Essential Hypertension , Hyperlipidemia, Transient Ischemic Attack, COPD, GERD, Atrial Fibrillation, Chronic Back Pain, and Tobacco Use Disorder. He presents to the ER at [facility] complaining of shortness of breath and chest pain. Pt states his symptoms began last night. Pt states his symptoms awoke him from sleep. He states his symptoms began with shortness of breath. He denies any recent cough, fever or chills. He states he got up from bed to go to the restroom, and developed a cramping heavy pain in the center of his chest. He reports this pain is non radiating. Pt states the pain was associated with significant diaphoresis. He denies any associated nausea, vomiting, palpitations, dizziness, and abdominal pain. Pt states the pain went away last night after a few minutes, and he again developed the pain early this morning along with shortness of breath. Pt has no other complaints or concerns at this time. Has stated that "it is time to quit smoking." Would like a nicotine patch while at the hospital. Exam Vital Signs Vital Sign - Last Date Time Temp Pulse Resp B/P Pulse Ox O2 Delivery O2 Flow Rate FiO2 05/30/16 10:59 60 05/30/16 09:58 36.5 22 119/60 91 OxyMask 3.00 Intake and Output 05/29/16 05/29/16 05/30/16 Cumulative From/Thru 14:59 22:59 06:59 05/29/16 12:53 - 05/30/16 05:49 Intake Total 1000 ml 484 ml 1920 ml 3404 ml Output Total 800 ml 3400 ml 4200 ml Balance 1000 ml -316 ml -1480 ml -796 ml Intake Oral 0 ml 300 ml 300 ml IV Total 1000 ml 484 ml 1620 ml 3104 ml Output Urine Total 800 ml 3400 ml 4200 ml # Bowel Movements 0 0 Exam GENERAL: NAD, Pt laying in bed comfortably HEENT: AT/NC, PERRLA, EOMI, Mucus Membranes are moist CARDIAC: RRR; No M/R/G PULM: Left basilar wheezes present, right lung is clear to auscultation ABD: Soft, Nontender, Nondistended, Positive bowel sounds in all quadrants, No Hepatosplenomegaly appreciated EXT: No C/C/E; No calf tenderness bilaterally SKIN: Warm, Dry, [place], and Intact NEURO: Alert and oriented x3; Following all commands PSYCH: Normal mood and affect IVs and Medications Medications Reviewed: Medications were reviewed in detail Lab and Diagnostics Result Diagram: 05/30/1621905/30/16219 X-Rays, CTs and MRIs X-RAY CHEST ONE VIEW, PORTABLE INDICATIONS: pnuemonia TECHNIQUE: One view of the chest was acquired. COMPARISON: [facility], CR, XR CHEST 2VW, 07/07/2015, 12:32. FINDINGS: Surgical changes and devices: None. Lungs and pleura: No pleural effusions or pneumothorax. Lungs are clear. Lung volumes are increased with flattening of the hemidiaphragms suggesting COPD. Mediastinum: Mediastinal contours appear normal. Heart size is normal. Bones and chest wall: No suspicious bony lesions. Overlying soft tissues appear unremarkable. IMPRESSION: Lung volumes are increased suggesting COPD, correlate with pulmonary functions test. Cardiac Echo Impressions Echocardiogram Report Interpretation Summary Left ventricular size is at the upper limits of normal. There is mid anterolateral wall hypokinesis. There is apical lateral wall hypokinesis. Left ventricular ejection fraction is estimated to be .55. There is mild tricuspid regurgitation. The right ventricular systolic pressure is estimated at 36 mmHg assuming a right atrial pressure of 8 mm Hg. There is no significant valvular heart disease. Electronically signed by: Logan Ornelas on Assessment & Plan Patient is a 60 year old male with a past medical history of Essential Hypertension, Atrial Fibrillation, TIA, COPD, Tobacco Use Disorder, GERD, and Chronic Back Pain. 1. Non ST-Elevation NM, present on admission. Active. - PCC. - Aspirin daily, Continue home Plavix - Troponin is positive, continue to trend. - Check CKMB and Troponin q 6 hours x4 - Telemetry monitoring - Start Metoprolol 12.5 mg PO BID - SL Nitroglycerin PRN chest pain - IV Morphine PRN for refractory chest pain - Supplemental O2 to keep SpO2 greater than 92% - Start Atorvastatin 80 mg PO daily - Lipid panel wnl. - D/C'd Heparin drip,on lovenox therapeutic now - Cardiology on board and does not feel pt requires a cardiac catheterization at this time, recommend treating COPD and medical management until stress test results, then will reexamine. - ECHO as above. - NM stress test d/c'd for now due to EKG changes this afternoon. Will add Lovenox Q12. 2. COPD, Acute Exacerbation, present on admission, active. - Start IV Solu-Medrol 125 mg q 8 hours - Duo-Neb breathing treatments q 6 hours scheduled - Supplemental O2 to keep SpO2 greater than 92% 3. Hypernatremia, present on admission. Active. - Free Water Deficit calculated at 2.0 liters - Will give pt D5W at 140 mL/hour for 14 hours - Recheck BMP in AM 4. Essential Hypertension - Pts home medications have not yet been reconciled - Restart home meds once reconciliation completed 5. Atrial Fibrillation, Paroxysmal - Pt is on Diltiazem at home, per notes in [facility] - Restart home meds once medication reconciliation complete,now on BB 6. Hyperlipidemia, present on admission. Resolved - Pt started on Atorvastatin 80 mg PO daily - Lipid panel wnl. 7. Hx of TIA - Continue home Plavix 8. Hypothyroidism - Continue home Synthroid once medication reconciliation completed 9. GERD - IV Famotidine 10.current smoker -reinforced need for quiting CODE STATUS: FULL, per discussion with patient at bedside Acetaminophen for mild pain when necessary. Bowel regimen Senna and MiraLAX scheduled and PRN. Zofran when necessary for nausea and vomiting. SubQ heparin held for now, Lovenox Q12. SCDs in place. High-risk medications: IV Morphine Disposition: Likely here for 2-3 midnights. Dependent upon respiratory and cardiac status. Will be discharged to home when medically stable. Pain Evaluation: Adequate Pain Control Resuscitation Status: CPR: Attempt Resuscitation Attending Statement The patient was seen and examined together with Dr. Higgins on 05/30/2016 and I agree with the history, exam and plan as outlined in the note above. . NAM HIGGINS DO May 30, 2016 11:39 Jean Bear MD May 30, 2016 18:22
[2016-05-30] MEDS ORDERED: ALBU8.5H2 INH (17:46)
[2016-05-31] VITALS (11 sets, daily range): BP systolic 117–149; BP diastolic 72–91; PULSE 56–90; RESP 18–22; O2SAT 94–96
[2016-05-31] MEDS: Sodium Chloride LOK Flush 10 mL Syringe IVFLUSH SCH ×4 (00:45→23:08)
[2016-05-31] MEDS: MethylprednisoLONE Sodium Succinate 62.5 mg/mL 2 mL Inj IVPUSH SCH ×3 (02:31→18:13)
[2016-05-31] MEDS: Albuterol-Ipratropium 3 mL Inhalation Solution NEB SCH ×4 (02:31→20:56)
[2016-05-31 04:23] LABS: BASOPHILS % (AUTO) 0.1 % (0-3); EOSINOPHILS % (AUTO) 0 % (0-5); MONOCYTES % (AUTO) 8.3 % (4-12); Mean Corpuscular Hemoglobin 28.9 pg (27.0-35.0); NEUTROPHILS % (AUTO) 82.9 % (40-74); Platelet Count 261 bil/L (150-400)
[2016-05-31] MEDS: Famotidine Inj 50 ML IV SCH (08:05)
[2016-05-31] MEDS: Senna-Docusate 8.6-50 mg Tablet PO PRN (08:12)
[2016-05-31] MEDS: Polyethylene Glycol (PEG) 17 Gm Powder PO PRN (08:12)
[2016-05-31] MEDS: oxyCODONE-Acetamin 10-325 mg Tablet PO PRN ×4 (08:12→23:05)
--- NOTE | 2016-05-31 08:52 | NUR ---
Social Work Note: Screen Note Data& Assessment: EMR reviewed. Heath Garcia is a 60 year old male admitted on 05/29/2016 for NSTEMI. Pt has [employer] and [facility] Medicaid insurance coverage. Pt sees Kaleb Lucero DO for primary care. Pt lives in [place] with family and is independent at baseline. 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 No needs identified at this time. SW to continue to follow if any needs arise. Plan: Anticipated discharge home via POV when medically ready. No needs identified at this time. SW to continue to follow if any needs arise. BEN Hammonds
[2016-05-31] MEDS: cefTRIAXone Inj 2,000 MG in Dextrose 5% Minibag Plus 50 ML IV SCH (08:56)
[2016-05-31] MEDS: Azithromycin Inj 500 MG in Dextrose 5% w/Vial Mate 250 ML IV SCH (09:37)
--- NOTE | 2016-05-31 10:36 | PCM.PNMED ---
Subjective Date of Service May 31, 2016 Subjective Patient is a year old male with a past medical history of Essential Hypertension , Hyperlipidemia, Transient Ischemic Attack, COPD, GERD, Atrial Fibrillation, Chronic Back Pain, and Tobacco Use Disorder. He presents to the ER at [facility] complaining of shortness of breath and chest pain. Pt states his symptoms began last night. Pt states his symptoms awoke him from sleep. He states his symptoms began with shortness of breath. He denies any recent cough, fever or chills. He states he got up from bed to go to the restroom, and developed a cramping heavy pain in the center of his chest. He reports this pain is non radiating. Pt states the pain was associated with significant diaphoresis. He denies any associated nausea, vomiting, palpitations, dizziness, and abdominal pain. Pt states the pain went away last night after a few minutes, and he again developed the pain early this morning along with shortness of breath. Overnight Events: No acute overnight events. Today: Pt has no other complaints or concerns at this time. Exam Vital Signs Vital Sign - Last Date Time Temp Pulse Resp B/P Pulse Ox O2 Delivery O2 Flow Rate FiO2 05/31/16 08:59 36.8 66 18 134/75 95 Nasal Cannula 2.00 Intake and Output 05/30/16 05/30/16 05/31/16 Cumulative From/Thru 14:59 22:59 06:59 05/29/16 12:53 - 05/31/16 05:40 Intake Total 1032 ml 510 ml 4946 ml Output Total 800 ml 5000 ml Balance 232 ml 510 ml -54 ml Intake Oral 518 ml 450 ml 1268 ml IV Total 514 ml 60 ml 3678 ml Output Urine Total 800 ml 5000 ml # Voids 2 2 # Bowel Movements 0 Exam GENERAL: NAD, Pt laying in bed comfortably HEENT: AT/NC, PERRLA, EOMI, Mucus Membranes are moist CARDIAC: RRR; No M/R/G PULM: Left basilar wheezes present, right lung is clear to auscultation ABD: Soft, Nontender, Nondistended, Positive bowel sounds in all quadrants, No Hepatosplenomegaly appreciated EXT: No C/C/E; No calf tenderness bilaterally SKIN: Warm, Dry, [place], and Intact NEURO: Alert and oriented x3; Following all commands PSYCH: Normal mood and affect IVs and Medications Medications Reviewed: Medications were reviewed in detail Lab and Diagnostics Result Diagram: 05/31/16 0355 05/31/16 0355 X-Rays, CTs and MRIs X-RAY CHEST ONE VIEW, PORTABLE INDICATIONS: pnuemonia TECHNIQUE: One view of the chest was acquired. COMPARISON: [facility] WITH [facility], CR, XR CHEST 2VW, 07/07/2015, 12:32. FINDINGS: Surgical changes and devices: None. Lungs and pleura: No pleural effusions or pneumothorax. Lungs are clear. Lung volumes are increased with flattening of the hemidiaphragms suggesting COPD. Mediastinum: Mediastinal contours appear normal. Heart size is normal. Bones and chest wall: No suspicious bony lesions. Overlying soft tissues appear unremarkable. IMPRESSION: Lung volumes are increased suggesting COPD, correlate with pulmonary functions test. Cardiac Echo Impressions Echocardiogram Report Interpretation Summary Left ventricular size is at the upper limits of normal. There is mid anterolateral wall hypokinesis. There is apical lateral wall hypokinesis. Left ventricular ejection fraction is estimated to be .55. There is mild tricuspid regurgitation. The right ventricular systolic pressure is estimated at 36 mmHg assuming a right atrial pressure of 8 mm Hg. There is no significant valvular heart disease. Electronically signed by: Logan Ornelas on Assessment & Plan Patient is a 60 year old male with a past medical history of Essential Hypertension, Atrial Fibrillation, TIA, COPD, Tobacco Use Disorder, GERD, and Chronic Back Pain. 1. Non ST-Elevation [place], present on admission. Active. - PCC. - Aspirin daily, Continue home Plavix - Check CKMB and Troponin q 6 hours x4,trending down now - Telemetry monitoring - Started Metoprolol 12.5 mg PO BID - SL Nitroglycerin PRN chest pain - IV Morphine PRN for refractory chest pain - Supplemental O2 to keep SpO2 greater than 92% - Start Atorvastatin 80 mg PO daily, Lipid panel wnl. - Cardiology on board and does not feel pt requires a cardiac catheterization at this time, recommend treating COPD and medical management until stress test results, then will reexamine. Most likely manage as outpatient. - ECHO as above. - D/C lovenox and start SQ heparin Q8 2. COPD, Acute Exacerbation, present on admission, active. - Initially Started IV Solu-Medrol 125 mg q 8 hours .will do quick taper, dyspnea mainly from NSTEMI than COPD exacerbation.no change in cough or phlegm - Duo-Neb breathing treatments q 6 hours scheduled - Supplemental O2 to keep SpO2 greater than 92% 3. Hypernatremia, present on admission. resolved. - Recheck BMP in AM 4. Essential Hypertension - resume home amlodipine and diltiazem 5. Atrial Fibrillation, Paroxysmal - resume diltiazem -not on AC due to unclear reason ,[id number] score 3 (HTN ,h/o TIA) -patient follows at [facility] residency clinic,will check from clinic notes .may need to consider starting Ac outpatient if no C/I 6. Hyperlipidemia, present on admission. Resolved - Pt started on Atorvastatin 80 mg PO daily - Lipid panel wnl. 7. Hx of TIA - Continue home Plavix 8. Hypothyroidism - Continue home Synthroid 9. GERD - PO ppi. 10.current smoker -reinforced need for quiting CODE STATUS: FULL, per discussion with patient at bedside Acetaminophen for mild pain when necessary. Bowel regimen Senna and MiraLAX scheduled and PRN. Zofran when necessary for nausea and vomiting. SubQ heparin held for now, Lovenox Q12. SCDs in place. High-risk medications: IV Morphine Disposition: Likely discharge tomorrow with outpatient cardiology management. Dependent upon respiratory and cardiac status. Will be discharged to home when medically stable. Pain Evaluation: Adequate Pain Control Resuscitation Status: CPR: Attempt Resuscitation Attending Statement The patient was seen and examined together with Dr. Higgins on 05/31/2016 and I agree with the history, exam and plan as outlined in the note above. NAM HIGGINS DO May 31, 2016 10:34 Jean Bear MD May 31, 2016 12:57
[2016-05-31] MEDS ORDERED: Albuterol HFA 60 Puff 8 Gm Inhaler INHALATION PRN (12:50)
[2016-05-31] MEDS: Venlafaxine XR 75 mg ER24 Capsule PO SCH ×2 (14:25→21:22)
--- NOTE | 2016-05-31 17:17 | NUR ---
Activity Pt up to the bathroom on RA and sats dropped to 85%-87%. Placed on NC 2L and sats came up to 94%. Pt stated he did not feel like walking in the hallway due to generalized weakness and still having mild SOB with activity.
[2016-05-31] MEDS: Fluticasone-Salmeterol 500-50 Inhaler INHALATION SCH (21:20)
[2016-05-31] MEDS: Heparin 5,000 Unit/mL Inj SUBQ SCH (21:21)
--- NOTE | 2016-05-31 23:54 | NUR ---
Report Report given to Panda Correa RN, all questions answered, patient resting in bed, no distress noted.
[2016-06-01] VITALS (12 sets, daily range): BP systolic 119–144; BP diastolic 67–86; PULSE 52–82; RESP 16–20; O2SAT 95–98
[2016-06-01] MEDS: Albuterol-Ipratropium 3 mL Inhalation Solution NEB SCH ×4 (02:30→21:13)
[2016-06-01] MEDS: MethylprednisoLONE Sodium Succinate 62.5 mg/mL 2 mL Inj IVPUSH SCH ×3 (03:11→18:25)
[2016-06-01 05:13] LABS: BASOPHILS % (AUTO) 0 % (0-3); EOSINOPHILS % (AUTO) 0 % (0-5); MONOCYTES % (AUTO) 9.9 % (4-12); Mean Corpuscular Hemoglobin 28.5 pg (27.0-35.0); NEUTROPHILS % (AUTO) 71.3 % (40-74); Platelet Count 267 bil/L (150-400)
[2016-06-01 05:39] LABS: TROPONIN T 0.023 ug/L (0.0-0.011)
[2016-06-01 05:46] LABS: Magnesium 2.2 mg/dL (1.6-2.6)
[2016-06-01] MEDS ORDERED: ALPHA LIPOIC ACID 300 MG PO SCH (08:30)
[2016-06-01] MEDS ORDERED: CHOLECALCIFEROL 4000 UNIT PO SCH (08:30)
[2016-06-01] MEDS ORDERED: Pantoprazole 20 mg ER24 Tablet PO SCH (08:30)
[2016-06-01] MEDS: Fluticasone-Salmeterol 500-50 Inhaler INHALATION SCH ×2 (08:52→20:13)
[2016-06-01] MEDS: Sodium Chloride LOK Flush 10 mL Syringe IVFLUSH SCH ×3 (08:52→23:41)
[2016-06-01] MEDS: Diltiazem CD 240 mg ER24 Capsule PO SCH (08:53)
[2016-06-01] MEDS: Venlafaxine XR 75 mg ER24 Capsule PO SCH ×2 (08:53→20:14)
[2016-06-01] MEDS: Polyethylene Glycol (PEG) 17 Gm Powder PO PRN (08:59)
[2016-06-01] MEDS: Heparin 5,000 Unit/mL Inj SUBQ SCH ×2 (08:59→20:19)
[2016-06-01] MEDS: Senna-Docusate 8.6-50 mg Tablet PO PRN (08:59)
[2016-06-01] MEDS: oxyCODONE-Acetamin 10-325 mg Tablet PO PRN ×4 (08:59→23:42)
--- NOTE | 2016-06-01 11:23 | PCM.PNCARD ---
Subjective Date of service Jun 01, 2016 Chief Complaint Dyspnea and chest pain History of Present Illness Mr Garcia -is a 60 year-old male with long-standing history of COPD secondary to 40+ years of tobacco use. Remote history is significant for TIA (reportedly in the last 10 years) and possible atrial fibrillation for which patient does not remember specifics. Patient claims he is on home oxygen and has very limited ability to exercise or walk secondary to his breathing/ COPD. Patient presented to the emergency room with exacerbation of COPD and transient chest pressure. Patient was found to have slightly elevated troponins along with his dyspnea. He is now pain managed with 1 L oxygen nasal cannula. Denies any chest pain or pressure overnight. He has had mild lightheadedness upon arising from bed. His breathing is improved. He denies edema, palpitation, orthopnea (he slept flat last night), PND. His vitals, labs appear stable. His troponin is trending down. Subjective: #Gen. denies fever chills or fatigue. Appetite is slightly improving. #HEENT - + mild headache, minor postnasal drip. No difficulty swallowing. #Neck- denies pain or glandular swelling. #Chest- breathing is easier. Cough is improved. #Cardiovascular- denies chest pain or pressure overnight or today. Mild lightheadedness/prostatic in nature. No edema no palpitations. #Abdominal- normal BM today, no abdominal pain #- denies urinary complaints #Integument- denies rash or irritation #Neuro- nonfocal Exam Vital Signs Vital Sign - Last Date Time Temp Pulse Resp B/P Pulse Ox O2 Delivery O2 Flow Rate FiO2 06/01/16 09:04 Supplement Oxygen 06/01/16 09:04 36.7 58 18 141/83 97 1.00 Intake and Output 05/31/16 05/31/16 06/01/16 Cumulative From/Thru 15:00 23:00 07:00 05/29/16 12:53 - 06/01/16 05:44 Intake Total 1086 ml 437 ml 6469 ml Output Total 5000 ml Balance 1086 ml 437 ml 1469 ml Intake Oral 696 ml 437 ml 2401 ml IV Total 390 ml 0 ml 4068 ml Output Urine Total 5000 ml # Voids 3 2 7 # Bowel Movements 0 Additional Information: #General- vision sitting up in bed in no apparent distress color is better. #HEENT- eyes sclera and PERRLA without icterus, pharynx is postnasal drip no significant erythema buccal mucosa moist. #Neck- supple without adenopathy nontender. #Chest- clear to auscultation without wheeze or rhonchi or rub. Breathing easily without retractions #Cardiovascular- regular rate and rhythm without murmur click, rub, or gallop. No JVD or peripheral edema. DP 1-2+ bilaterally #Abdominal- soft nontender #Integument- no new lesions, rash. #Neurologic- cranial nerves II through XII grossly intact, alert and oriented 4. #Psychiatric- appropriate for place and situation. Lab and Diagnostics Labs Troponin 0.023 (0.036) Result Diagram: 06/01/16 0435 06/01/16 0500 12-lead ECG Most recent EKG shows bradycardia 40 bpm. QTC is slightly elongated at 505 (555 ) T wave inversions present in lead 1, aVL, V2, V3 through V6. Assessment & Plan Assessment This is a 60-year-old male with long-standing history of tobacco use with subsequent COPD with multiple exacerbations. Recent exacerbations associated with chest pain transiently prior to hospital. Troponins are elevated, etiology not completely clear but epicardial heart disease should be ruled out versus demand ischemia. Patient has remote history of TIA he thinks in the last 8-10 years. Also question of remote history of atrial fibrillation though I have no records to support this and patient does not specifically recall. He is doing better from a respiratory standpoint at this time. Cardiac disease burden is still unknown. Had a lengthy discussion with patient today regarding quitting smoking and proceeding with diagnostic left heart catheterization. The patient expresses that he wants to quit smoking and is hoping we will be able to. He is interested in having a heart catheterization procedure done however he does not want to have it done during this hospital stay. Consulted with Dr. Ornelas and he has recommended a dobutamine stress echo test which we will try to get today. Problems: Plan #N STEMI troponins are trending downward. Reviewed with Dr. Ornelas will pursue dobutamine stress echo. Continue Plavix, aspirin, metoprolol tartrate, diltiazem, atorvastatin. #COPD-continue management as per hospitalist. #Hypertension. Patient is currently taking diltiazem 240 mg daily, metoprolol tartrate 12.5 mg twice a day, amlodipine 10 mg daily. He has had some mild asymptomatic bradycardia overnight but during my visit is in the 70s. #Paroxysmal atrial fibrillation. History is still very vague and known. May be helpful as an outpatient to run a monitor to assess atrial fibrillation burden. His chads ask score is 4 (hypertension (1), TIA(2), vascular disease ( NSTEMI 1). Would like to know more about his history of A. fib prior to anticoagulation. #Hyperlipidemia- continue atorvastatin #History TIA -continue aspirin and Plavix #Hypothyroidism-management per service Pain Evaluation: Adequate Pain Control Resuscitation Status: CPR: Attempt Resuscitation Attending Statement Patient agrees for cath,will try and quit smoking, will d/c amlodipine. Ike Zambrano PA-C Jun 01, 2016 10:16 Logan Ornelas MD Jun 01, 2016 13:59
--- NOTE | 2016-06-01 17:30 | NUR ---
Trial on RA Pt on NC 1L for most of the day and sats were 94%-98%. At the 1630 check we started to trial the pt on RA due to the pt not being on O2 during the day only 3L at night. Pt currently on RA and sats have been remaining at 92%-94% while sitting up in the chair. Will continue to monitor
--- NOTE | 2016-06-01 18:14 | PCM.PNMED ---
Subjective Date of Service Jun 01, 2016 Subjective Patient is a year old male with a past medical history of Essential Hypertension , Hyperlipidemia, Transient Ischemic Attack, COPD, GERD, Atrial Fibrillation, Chronic Back Pain, and Tobacco Use Disorder. He presents to the ER at [facility] complaining of shortness of breath and chest pain. Pt states his symptoms began last night. Pt states his symptoms awoke him from sleep. He states his symptoms began with shortness of breath. He denies any recent cough, fever or chills. He states he got up from bed to go to the restroom, and developed a cramping heavy pain in the center of his chest. He reports this pain is non radiating. Pt states the pain was associated with significant diaphoresis. He denies any associated nausea, vomiting, palpitations, dizziness, and abdominal pain. Pt states the pain went away last night after a few minutes, and he again developed the pain early this morning along with shortness of breath. Overnight Events: No acute overnight events. Today: Pt has no other complaints or concerns at this time. Exam Vital Signs Vital Sign - Last Date Time Temp Pulse Resp B/P Pulse Ox O2 Delivery O2 Flow Rate FiO2 06/01/16 16:36 76 16 119/67 98 Room Air 1.00 06/01/16 12:53 36.8 Intake and Output 05/31/16 05/31/16 06/01/16 Cumulative From/Thru 15:00 23:00 07:00 05/29/16 12:53 - 06/01/16 05:44 Intake Total 1086 ml 437 ml 6469 ml Output Total 5000 ml Balance 1086 ml 437 ml 1469 ml Intake Oral 696 ml 437 ml 2401 ml IV Total 390 ml 0 ml 4068 ml Output Urine Total 5000 ml # Voids 3 2 7 # Bowel Movements 0 Exam GENERAL: NAD, Pt laying in bed comfortably HEENT: AT/NC, PERRLA, EOMI, Mucus Membranes are moist CARDIAC: RRR; No M/R/G PULM: Left basilar wheezes present, right lung is clear to auscultation ABD: Soft, Nontender, Nondistended, Positive bowel sounds in all quadrants, No Hepatosplenomegaly appreciated EXT: No C/C/E; No calf tenderness bilaterally SKIN: Warm, Dry, [place], and Intact NEURO: Alert and oriented x3; Following all commands PSYCH: Normal mood and affect IVs and Medications Medications Reviewed: Medications were reviewed in detail Lab and Diagnostics Result Diagram: 06/01/16 7352 06/01/16 0500 X-Rays, CTs and MRIs X-RAY CHEST ONE VIEW, PORTABLE INDICATIONS: pnuemonia TECHNIQUE: One view of the chest was acquired. COMPARISON: [facility], CR, XR CHEST 2VW, 07/07/2015, 12:32. FINDINGS: Surgical changes and devices: None. Lungs and pleura: No pleural effusions or pneumothorax. Lungs are clear. Lung volumes are increased with flattening of the hemidiaphragms suggesting COPD. Mediastinum: Mediastinal contours appear normal. Heart size is normal. Bones and chest wall: No suspicious bony lesions. Overlying soft tissues appear unremarkable. IMPRESSION: Lung volumes are increased suggesting COPD, correlate with pulmonary functions test. Cardiac Echo Impressions Echocardiogram Report Interpretation Summary Left ventricular size is at the upper limits of normal. There is mid anterolateral wall hypokinesis. There is apical lateral wall hypokinesis. Left ventricular ejection fraction is estimated to be .55. There is mild tricuspid regurgitation. The right ventricular systolic pressure is estimated at 36 mmHg assuming a right atrial pressure of 8 mm Hg. There is no significant valvular heart disease. Electronically signed by: Logan Ornelas on Assessment & Plan Patient is a 60 year old male with a past medical history of Essential Hypertension, Atrial Fibrillation, TIA, COPD, Tobacco Use Disorder, GERD, and Chronic Back Pain. 1. Non ST-Elevation [place], present on admission. Active. - PCC. - Aspirin daily, Continue home Plavix - Check CKMB and Troponin q 6 hours x4,trending down now - Telemetry monitoring - Started Metoprolol 12.5 mg PO BID - SL Nitroglycerin PRN chest pain - IV Morphine PRN for refractory chest pain - Supplemental O2 to keep SpO2 greater than 92% - Start Atorvastatin 80 mg PO daily, Lipid panel wnl. - ECHO as above. - SQ heparin Q8 - NPO - Cardiology on board, plan for cardiac catheterization tomorrow. 2. COPD, Acute Exacerbation, present on admission, active. - Initially Started IV Solu-Medrol 125 mg q 8 hours .will do quick taper, dyspnea mainly from NSTEMI than COPD exacerbation.no change in cough or phlegm - Duo-Neb breathing treatments q 6 hours scheduled - Supplemental O2 to keep SpO2 greater than 92% - O2 requirements near baseline. 3-4L. 3. Hypernatremia, present on admission. resolved. - Recheck BMP in AM 4. Essential Hypertension - Resume home amlodipine and diltiazem 5. Atrial Fibrillation, Paroxysmal - resume diltiazem -not on AC due to unclear reason ,[id number] score 3 (HTN ,h/o TIA) -patient follows at [facility] residency clinic,will check from clinic notes .may need to consider starting Ac outpatient if no C/I 6. Hyperlipidemia, present on admission. Resolved - Pt started on Atorvastatin 80 mg PO daily - Lipid panel wnl. 7. Hx of TIA - Continue home Plavix 8. Hypothyroidism - Continue home Synthroid 9. GERD - PO ppi. 10.current smoker -reinforced need for quiting CODE STATUS: FULL, per discussion with patient at bedside Acetaminophen for mild pain when necessary. Bowel regimen Senna and MiraLAX scheduled and PRN. Zofran when necessary for nausea and vomiting. SubQ heparin for now, Held tomorrow Lovenox Q12. SCDs in place. High-risk medications: IV Morphine Disposition: Likely discharge tomorrow depending upon cardiac cath results. Will be discharged to home when medically stable. Pain Evaluation: Adequate Pain Control Resuscitation Status: CPR: Attempt Resuscitation Attending Statement The patient was seen and examined together with Dr. Higgins on 06/01/2016 and I agree with the history, exam and plan as outlined in the note above. NAM HIGGINS DO Jun 01, 2016 18:14 Jean Bear MD Jun 01, 2016 19:26
[2016-06-02] VITALS (14 sets, daily range): BP systolic 122–140; BP diastolic 65–87; PULSE 50–68; RESP 15–23; O2SAT 92–97
[2016-06-02] MEDS: MethylprednisoLONE Sodium Succinate 62.5 mg/mL 2 mL Inj IVPUSH SCH ×2 (03:32→10:30)
[2016-06-02 04:00] LABS: BASOPHILS % (AUTO) 0 % (0-3); EOSINOPHILS % (AUTO) 0 % (0-5); MONOCYTES % (AUTO) 9.2 % (4-12); Mean Corpuscular Hemoglobin 28.4 pg (27.0-35.0); Mean Corpuscular Volume 88.9 fL (81-100); NEUTROPHILS % (AUTO) 70.9 % (40-74); Platelet Count 264 bil/L (150-400)
--- NOTE | 2016-06-02 06:11 | NUR ---
O2 Pt on RA with sats in mid 90's all night. No complaints of SOB/Dyspnea.
[2016-06-02] MEDS ORDERED: Pantoprazole 40 mg ER24 Tablet PO SCH (06:30)
[2016-06-02] MEDS ORDERED: Heparin 10,000 Unit/1,000 mL NS Premix IV ONE (07:31)
[2016-06-02] MEDS ORDERED: Heparin 1,000 Units/500 mL NS Premix IV ONE (07:31)
[2016-06-02] MEDS: Fluticasone-Salmeterol 500-50 Inhaler INHALATION SCH (07:32)
[2016-06-02] MEDS: Sodium Chloride LOK Flush 10 mL Syringe IVFLUSH SCH (07:33)
[2016-06-02] MEDS: Diltiazem CD 240 mg ER24 Capsule PO SCH (07:33)
[2016-06-02] MEDS: Venlafaxine XR 75 mg ER24 Capsule PO SCH (07:34)
[2016-06-02] MEDS: Heparin 5,000 Unit/mL Inj SUBQ SCH (07:35)
[2016-06-02] MEDS ORDERED: 0.9% Sodium Chloride 50 ML ONE (07:49)
[2016-06-02] MEDS: Albuterol-Ipratropium 3 mL Inhalation Solution NEB SCH ×2 (07:50→14:12)
[2016-06-02] MEDS ORDERED: Nitroglycerin 50,000 mcg/250 mL D5W Premix IV ONE (07:56)
[2016-06-02] MEDS ORDERED: fentaNYL-PF 50 mCg/mL 2 mL Inj ONE (07:56)
[2016-06-02] MEDS ORDERED: Heparin 1,000 Unit/mL 10 mL Inj ONE (08:09)
--- NOTE | 2016-06-02 09:29 | NUR ---
Received Received from [employer] about 09. VSS. States chronic 6/10 neck pain. Right groin stable without bleeding or hematoma. Taking po well. IVF at 100ml/hr per protocol. Groin precautions reviewed and verbalizes understanding. Cont. to monitor as ordered. Addendum: 06/02/16 at 0947 by SHERICE GONZALEZ RN [place] GOFF
--- NOTE | 2016-06-02 09:36 | CS94 ---
[address] [address] DIAGNOSTIC CARDIAC CATHETERIZATION PATIENT: MEAGAN ABBOTT : 1955 MR#: [id number] ADMIT: 05/29/2016 JOB ID: [id number] SERVICE DATE: 06/02/2016 PROCEDURES: Right and left heart catheterization. INDICATION: Chronic obstructive pulmonary disease, pulmonary hypertension, LV dysfunction. PROCEDURAL DETAILS: The reader is referred to the procedure log for complete details. Briefly, it was done via right femoral approach using a 6-Moroccan system. A 7-Moroccan Kirkman-Shu catheter was used. Right heart catheterization revealed a PA pressure of 43/24, mean of 34, RV pressure of 40, LVEDP of 13, RA pressure was 15/14. Mean RA pressure was 11. Left heart catheterization revealed an LV pressure of 152/6 with a LVEDP of 24. There was no gradient upon pullback. PA sat was 67. FA sat was 93. MARILYN cardiac output was 5.9 L. thermodilution cardiac output was 4 L/minute. ANGIOGRAPHIC FINDINGS: 1. Left main: No significant disease. 2. LAD normal. Mild proximal ectasia is noted. 3. Circumflex free of any critical disease. 4. Right coronary artery is free of any significant disease. Moderate caliber vessel. 5. LV gram revealed [id number] LV dysfunction. EF is estimated to be around 30%- 35%. Mid anterior and mid inferior severe hypokinesis is noted. This pattern could be a variant of stress cardiomyopathy. A repeat echocardiogram in a week or so is recommended. In summary, moderate LV dysfunction. No significant epicardial coronary artery disease. Mild pulmonary hypertension.
--- NOTE | 2016-06-02 11:10 | NUR ---
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 He returned at 1110 and settled back into his room. Right groin site clean, dry, and intact. Care continues.
--- NOTE | 2016-06-02 11:19 | NUR ---
Transfer VS and groin remain stable. Ate breakfast. 150ml NS infused in DENNY, 100 in CL. Report to Erin Warren RN. Transported to 2022 at 1105 in no distress. Bedside check done.
[2016-06-02] MEDS: oxyCODONE-Acetamin 10-325 mg Tablet PO PRN (11:23)
--- NOTE | 2016-06-02 12:29 | PCM.DIMED ---
Discharge Instructions Date of Service Jun 02, 2016 Dates of Hospitalization May 29, 2016 at 15:32 Discharge Diagnosis Discharge Diagnosis 1. Acute on chronic systolic CHF ,poa 2. COPD, Acute Exacerbation, present on admission, active. [address]-Elevation [place], present on admission. Active. 4. Essential Hypertension 5. Atrial Fibrillation, Paroxysmal 6. Hyperlipidemia, present on admission. Resolved 7. Hx of TIA 8. Hypothyroidism 9. GERD 10.current smoker Diet Low fat, Low Sodium, Heart Healthy Activity Limited until seen by PCP Call your provider Fever or Chills, Shortness of breath, Bleeding, Chest pain, Vomitting, Excessive diarrhea, Weakness (unilateral) Patient Instructions You were hospitalized due to shortness of breath and chest pain. Looks like you had acute COPD exacerbation and acute systolic CHF. You also had evidences of NSTEMI ( heart attack). Cardiac catheterization done did not show any blocked arteries but showed systolic dysfunction( heart failure) with ejection fraction 35%. Recommendations are as follows 1. for your COPD :please continue home oxygen,Advair and nebulizer. Please continue prednisone 40 mg by mouth daily for 2 more days. Please take every effort to quit smoking. 2. For your NSTEMI/systolic dysfunction(heart failure): I have switched his Plavix to aspirin 81 mg daily. Switched Cardizem to metoprolol. I have started you on lisinopril 5 mg by mouth daily. Dose needs to be increased by your PCP after follow-up. You need to see PCP in 5-7 days to check your kidney function given contrast use during cardiac catheterization and initiation of lisinopril. you are again advised to quit smoking. 3. For your paroxysmal atrial fibrillation: I have switched Cardizem to metoprolol. i also think you need to be on blood thinners due to history of TIA and atrial fibrillation. Please discuss with your PCP regarding initiation of blood thinner outpatient. Follow-up plan please follow up with PCP at residency clinic in 4-6 days to recheck your kidney function given contrast exposure for cardiac catheterization and multiple medication changes. Please discuss with your PCP to start blood thinners for your history of atrial fibrillation. Please follow up with Dr Ornelas in 3-4 weeks. Follow-up Provider: Kaleb Billings DO Follow-up with PCP in: 1 week Provider: Logan Ornelas MD Follow-up in: 4 weeks Mid-level Provider (F9): Kelsie Alvarado MD Follow-up with Mid-level in: 4 weeks Jean Bear MD Jun 02, 2016 12:29
[2016-06-02] MEDS ORDERED: METO25TA99 PO ×2 (12:47→12:55)
[2016-06-02] MEDS ORDERED: ASPI81TA3 PO (12:47)
[2016-06-02] MEDS ORDERED: PRE20 PO ×2 (12:47→12:55)
[2016-06-02] MEDS ORDERED: LISI-610 PO (12:47)
[2016-06-02] MEDS ORDERED: ASPI-973 PO (12:55)
[2016-06-02] MEDS ORDERED: LISI-571 PO (12:55)
[2016-06-02] MEDS ORDERED: LISI10TA PO (12:57)
--- NOTE | 2016-06-02 13:33 | PCM.DC.MED ---
Discharge Summary Date of Service Jun 02, 2016 Dates of Hospitalization Date of Hospital Admission May 29, 2016 at 15:32 Date of Discharge: Jun 02, 2016 Providers: Admitting Physician: Cholo Haji MD Primary Care Physician: Kaleb Billings DO Attending Physician: Cholo Haji MD Diagnosis at Time of Discharge Diagnosis at Time of Discharge 1. Acute on chronic systolic CHF ,poa 2. COPD, Acute Exacerbation, present on admission, active. [address]-Elevation PA, present on admission. Active. 4. Essential Hypertension 5. Atrial Fibrillation, Paroxysmal 6. Hyperlipidemia, present on admission. Resolved 7. Hx of TIA 8. Hypothyroidism 9. GERD 10.current smoker Consultations cardiology Dr Ornelas Procedures XRay, CTs & MRIs X-RAY CHEST ONE VIEW, PORTABLE INDICATIONS: pnuemonia TECHNIQUE: One view of the chest was acquired. COMPARISON: [facility], CR, XR CHEST 2VW, 07/07/2015, 12:32. FINDINGS: Surgical changes and devices: None. Lungs and pleura: No pleural effusions or pneumothorax. Lungs are clear. Lung volumes are increased with flattening of the hemidiaphragms suggesting COPD. Mediastinum: Mediastinal contours appear normal. Heart size is normal. Bones and chest wall: No suspicious bony lesions. Overlying soft tissues appear unremarkable. IMPRESSION: Lung volumes are increased suggesting COPD, correlate with pulmonary functions test. Cardiac Echo Impression Echocardiogram Report Interpretation Summary Left ventricular size is at the upper limits of normal. There is mid anterolateral wall hypokinesis. There is apical lateral wall hypokinesis. Left ventricular ejection fraction is estimated to be .55. There is mild tricuspid regurgitation. The right ventricular systolic pressure is estimated at 36 mmHg assuming a right atrial pressure of 8 mm Hg. There is no significant valvular heart disease. Electronically signed by: Logan Ornelas on Invasive Procedures SERVICE DATE: 06/02/2016 PROCEDURES: Right and left heart catheterization. INDICATION: Chronic obstructive pulmonary disease, pulmonary hypertension, LV dysfunction. PROCEDURAL DETAILS: The reader is referred to the procedure log for complete details. Briefly, it was done via right femoral approach using a 6-Japanese system. A 7-Japanese [place] catheter was used. Right heart catheterization revealed a PA pressure of 43/24, mean of 34, RV pressure of 40, LVEDP of 13, RA pressure was 15/14. Mean RA pressure was 11. Left heart catheterization revealed an LV pressure of 152/6 with a LVEDP of 24. There was no gradient upon pullback. PA sat was 67. FA sat was 93. MARILYN cardiac output was 5.9 L. thermodilution cardiac output was 4 L/minute. ANGIOGRAPHIC FINDINGS: 1. Left main: No significant disease. 2. LAD normal. Mild proximal ectasia is noted. 3. Circumflex free of any critical disease. 4. Right coronary artery is free of any significant disease. Moderate caliber vessel. 5. LV gram revealed [id number] LV dysfunction. EF is estimated to be around 30%- 35%. Mid anterior and mid inferior severe hypokinesis is noted. This pattern could be a variant of stress cardiomyopathy. A repeat echocardiogram in a week or so is recommended. In summary, moderate LV dysfunction. No significant epicardial coronary artery disease. Mild pulmonary hypertension. Logan Ornelas MD 06/02/16 0856 Brief History as per HPI performed by Dr Haji on 05/29/16 Mr Garcia -is a 60 year-old male with long-standing history of COPD secondary to 40+ years of tobacco use. Remote history is significant for TIA (reportedly in the last 10 years) and possible atrial fibrillation for which patient does not remember specifics. Patient claims he is on home oxygen and has very limited ability to exercise or walk secondary to his breathing/ COPD. Patient presented to the emergency room with exacerbation of COPD and transient chest pressure. Patient was found to have slightly elevated troponins along with his dyspnea. He is now pain managed with 1 L oxygen nasal cannula. Denies any chest pain or pressure overnight. He has had mild lightheadedness upon arising from bed. His breathing is improved. He denies edema, palpitation, orthopnea (he slept flat last night), PND. His vitals, labs appear stable. His troponin is trending down. Hospital Course Patient is a 60 year old male with a past medical history of Essential Hypertension, Atrial Fibrillation, TIA, COPD, Tobacco Use Disorder, GERD, and Chronic Back Pain. # Acute on chronic systolic CHF -EF 35 5 on cardiac cath today. Possibly ischemic cardiomyopathy but no blocked artery on angiogram. -Switched Cardizem to metoprolol ER 25 mg daily, start lisinopril 10 mg by mouth daily. Lisinopril dose to be increased by PCP after a week if BP high. -Advised to see his PCP next week given contrast exposure during cardiac angiogram today and initiation of lisinopril. Patient verbalized understanding -Lasix 20 mg by mouth when necessary. Seems euvolemic currently. #. Non ST-Elevation PA, present on admission. Active. - Started Aspirin daily, discontinue home Plavix - Started Metoprolol er 25 daily - Continue Atorvastatin 20 mg PO daily, will keep on low intensity statin given no blocked artery on angiogram - ECHO as above. -Cardiac angiogram no blocked arteries present but systolic dysfunction with ejection fraction of 35%. Discussed with cardiology and agrees with discharge plan #. Atrial Fibrillation, Paroxysmal -Switched diltiazem to metoprolol -not on AC due to unclear reason ,[id number] score 3 (HTN ,h/o TIA) -patient follows at [facility] residency clinic, advised to follow-up with PCP next week.may need to consider starting Ac outpatient if no C/I . Did not start anticoagulation given multiple medication change on current admission #. COPD, Acute Exacerbation, present on admission, active. - Duo-Neb breathing treatments q 6 hours scheduled -Was treated with Solu-Medrol. Will discharged on prednisone 20 mg by mouth daily for 3 more days - Supplemental O2 to keep SpO2 greater than 92% - O2 requirements near baseline. 3-4L. #. Essential Hypertension, chronic -Discontinue amlodipine and diltiazem -Started metoprolol and lisinopril #. Hyperlipidemia, present on admission. Resolved - Pt started on Atorvastatin 80 mg PO daily - Lipid panel wnl. #. Hx of TIA - Plavix switched to aspirin #. Hypothyroidism - Continue home Synthroid #. GERD - PO ppi. #.current smoker -reinforced need for quiting CODE STATUS: FULL, per discussion with patient at bedside Disposition: Discharged home Follow up with PCP at this residency clinic next week Condition on discharge stable. Groin no hematoma Exam Vital Signs (Last) Date Time Temp Pulse Resp B/P Pulse Ox O2 Delivery O2 Flow Rate FiO2 06/02/16 11:18 36.9 66 23 134/75 94 Room Air 06/01/16 21:14 0.50 Exam GENERAL: NAD, Pt laying in bed comfortably HEENT: AT/NC, PERRLA, EOMI, Mucus Membranes are moist CARDIAC: RRR; No M/R/G PULM: Left basilar wheezes present, right lung is clear to auscultation ABD: Soft, Nontender, Nondistended, Positive bowel sounds in all quadrants, No Hepatosplenomegaly appreciated EXT: No C/C/E; No calf tenderness bilaterally SKIN: Warm, Dry, [place], and Intact NEURO: Alert and oriented x3; Following all commands PSYCH: Normal mood and affect Test 05/29/16 13:08 05/29/16 20:08 05/30/16 02:20 05/30/16 08:55 Hemoglobin A1c 5.3% (4.8-5.6) Pro-B-Type Natriuretic Peptide 1004pg/mL (0-210) Thyroid Stimulating Hormone (TSH) 1.410uIU/mL (0.450-4.500) Urine Color Straw (YELLOW) Urine Appearance Clear (CLEAR,HAZY) Urine pH 6.5 (5.0-8.0) Urine Specific [place] 1.005 (1.003-1.035) Urine Protein Negativemg/dL (NEG,TRACE) Urine Glucose (UA) Negativemg/dL (NEGATIVE) Urine Ketones Negativemg/dL (NEGATIVE) Urine Occult Blood Small (NEGATIVE) Urine Nitrite Negative (NEGATIVE) Urine Bilirubin Negative (NEGATIVE) Urine Urobilinogen Normalmg/dL (NORMAL) Urine Leukocyte Esterase Negative (NEGATIVE) Urine RBC 0-2/hpf (0-2) Urine WBC 0-5/hpf (0-5) Urine Epithelial Cells None/hpf (NONE-MOD) Urine Crystals None seen (NONE SEEN) Urine Bacteria None/hpf (NONE-FEW) Urine Hyaline Casts None/lpf (NONE) Urine Granular Casts None seen (NONE SEEN) Urine Waxy Casts None seen (NONE SEEN) Urine Red Blood Cell Casts None seen (NONE SEEN) Urine White Blood Cell Casts None seen (NONE SEEN) Urine Mucus None seen (None Seen) Urine Trichomonas None seen (NONE SEEN) Urine Yeast None (NONE SEEN) Urinalysis Comment None Urine Culture Reflexed Not indicated Triglycerides Level 47mg/dL (0-149) Cholesterol Level 136mg/dL (100-199) LDL Cholesterol, Calculated 48.600mg/dL (0-99) VLDL Cholesterol 9.400mg/dL HDL Cholesterol 78mg/dL (>39) Cholesterol/HDL Ratio 1.74 (0.0-4.4) Total Creatine Kinase 241U/L (21-232) Creatine Kinase MB 9.1ng/mL (0.0-10.4) Creatine Kinase MB % 3.8% (0.0-5.0) Test 05/30/16 09:30 05/30/16 14:13 06/01/16 05:00 06/02/16 03:35 Lactic Acid Level 1.4mmol/L (0.4-2.0) Activated Partial Thromboplast Time 25.0sec (22.8-33.0) Magnesium Level 2.2mg/dL (1.6-2.6) Troponin T 0.023ug/L (0.0-0.011) Procalcitonin 0.07ng/mL (0.00-0.08) White Blood Count 12.5th/mm3 (3.8-10.1) Red Blood Count 4.58mil/mm3 (4.40-5.80) Hemoglobin 13.0g/dL (13.8-17.2) Hematocrit 40.7% (41.0-50.0) Mean Corpuscular Volume 88.9fL (81-100) Mean Corpuscular Hemoglobin 28.4pg (27.0-35.0) Mean Corpuscular Hemoglobin Concent 31.9% (32.0-37.0) Red Cell Distribution Width 14.9% (12.3-15.4) Platelet Count 264bil/L (150-400) Neutrophils (%) (Auto) 70.9% (40-74) Lymphocytes (%) (Auto) 19.7% (14-46) Monocytes (%) (Auto) 9.2% (4-12) Eosinophils (%) (Auto) 0% (0-5) Basophils (%) (Auto) 0% (0-3) Sodium Level 145mEq/L (134-144) Potassium Level 3.9mEq/L (3.5-5.2) Chloride Level 108mEq/L (97-108) Carbon Dioxide Level 26mmol/L (18-29) Blood Urea Nitrogen 22mg/dL (6-24) Creatinine 0.79mg/dL (0.76-1.27) Estimat Glomerular Filtration Rate 107mL/min (>59) Glucose Level 125mg/dL (60-99) Calcium Level 8.8mg/dL (8.5-10.1) Total Bilirubin 0.3mg/dL (0.0-1.2) Aspartate Amino Transf (AST/SGOT) 12U/L (0-50) Alanine Aminotransferase (ALT/SGPT) 21U/L (0-44) Alkaline Phosphatase 79U/L (25-150) Total Protein 5.5g/dL (6.4-8.4) Albumin 3.8g/dL (3.4-5.0) Discharge Medications Discharge Medications Alpha Lipoic Acid (Alpha Lipoic Acid) 300 Mg Capsule 300 MG PO DAILY (Reported) Aspirin (Aspirin) 81 Mg Tablet 81 MG PO DAILY Prescribed by: JEAN BEAR MD Atorvastatin (Lipitor) 20 Mg Tablet 20 MG PO HS (Reported) Cholecalciferol (Vitamin D3) (Vitamin D3) 2,000 Unit Tablet 4,000 UNIT PO DAILY (Reported) Cyanocobalamin (Vitamin B12) 1,000 Mcg Tablet 1,000 MCG PO DAILY (Reported) Fluticasone Propionate (Fluticasone Propionate Nasal) 16 Gm [place].susp 1 SPRAY NS BID (Reported) Fluticasone/Salmeterol (Advair Hfa 230-21 Mcg Inhaler) 12 Gm Hfa.aer.ad 2 PUFF IH BID (Reported) Levothyroxine (Levothyroxine) 50 Mcg Tablet 50 MCG PO QAM (Reported) Lisinopril (Lisinopril) 10 Mg Tablet 10 MG PO DAILY Prescribed by: JEAN BAER MD Magnesium Oxide (Magnesium) 250 Mg Tablet 250 MG PO DAILY (Reported) Metoprolol Succinate ER (Metoprolol Succinate ER) 25 Mg Tab.er.24h 25 MG PO DAILY Prescribed by: JEAN BEAR MD [place]-3/Dha/Epa/Fish Oil (Fish Oil 1,000 mg Softgel) 1 Each Capsule 1 EACH PO DAILY (Reported) Pantoprazole DR (Pantoprazole DR) 20 Mg Tablet.dr 40 MG PO QAM (Reported) Prednisone (PredniSONE) 20 Mg Tablet 20 MG PO DAILY Prescribed by: JEAN BEAR MD Pregabalin (Lyrica) 50 Mg Capsule 150 MG PO TID (Reported) Venlafaxine ER (Venlafaxine ER) 75 Mg Tab.er.24 150 MG PO QAM (Reported) Venlafaxine ER (Venlafaxine ER) 75 Mg Cap.er.24h 225 MG PO HS (Reported) As needed Albuterol HFA (Proair HFA) 8.5 Gm Hfa.aer.ad 2 PUFFS INH q4-6 hours PRN PRN For Shortness of Breath (Reported) Albuterol Neb Soln (Albuterol Neb Soln) 1.25 Mg/3 Ml Vial.neb 1 VIAL IH QID PRN PRN For Shortness of Breath (Reported) Carisoprodol (Soma) 350 Mg Tablet 350 MG PO TID PRN PRN SPASMS (Reported) Furosemide (Furosemide) 20 Mg Tab 10 MG PO DAILY PRN PRN edema (Reported) Ipratropium/Albuterol Sulfate (Iprat-Albut 0.5-3(2.5) mg/3 mL Inhalant Soln) 3 Ml Ampul.neb 3 ML IH Q6 PRN PRN For Shortness of Breath (Reported) Nicotine 14 mg/24 hr Patch (Nicotine 14 mg/24 hr Patch) 1 Each Patch.td24 1 PATCH TRANSDERM DAILY PRN PRN prn (Reported) Trazodone (Trazodone) 50 Mg Tablet 50 MG PO HS PRN PRN For Insomnia (Reported) Do not combine with alcohol. oxyCODONE-Acetaminophen 10-325 mg (oxyCODONE-Acetaminophen 10-325 mg) 1 Each Tablet 1 TABLET PO q5-6 hours PRN PRN For Pain (Reported) Followup Plan Disposition: home Follow-up plan please follow up with PCP at residency clinic in 4-6 days to recheck your kidney function given contrast exposure for cardiac catheterization and multiple medication changes. Please discuss with your PCP to start blood thinners for your history of atrial fibrillation. Please follow up with Dr Ornelas in 3-4 weeks. Discharge Diet: Low fat, Low Sodium, Heart Healthy Discharge Activity: Limited until seen by PCP Patient Instructions You were hospitalized due to shortness of breath and chest pain. Looks like you had acute COPD exacerbation and acute systolic CHF. You also had evidences of NSTEMI ( heart attack). Cardiac catheterization done did not show any blocked arteries but showed systolic dysfunction( heart failure) with ejection fraction 35%. Recommendations are as follows 1. for your COPD :please continue home oxygen,Advair and nebulizer. Please continue prednisone 40 mg by mouth daily for 2 more days. Please take every effort to quit smoking. 2. For your NSTEMI/systolic dysfunction(heart failure): I have switched his Plavix to aspirin 81 mg daily. Switched Cardizem to metoprolol. I have started you on lisinopril 5 mg by mouth daily. Dose needs to be increased by your PCP after follow-up. You need to see PCP in 5-7 days to check your kidney function given contrast use during cardiac catheterization and initiation of lisinopril. you are again advised to quit smoking. 3. For your paroxysmal atrial fibrillation: I have switched Cardizem to metoprolol. i also think you need to be on blood thinners due to history of TIA and atrial fibrillation. Please discuss with your PCP regarding initiation of blood thinner outpatient. Follow-up Provider: Kaleb Billings DO Follow-up with PCP in: 1 week Provider: Logan Ornelas MD Follow-up in: 4 weeks Mid-level Provider: Kelsie Alvarado MD Follow-up with Mid-level in: 4 weeks Time spent 35 minutes coordinating discharge copies to: Kelsie Alvarado MD; Logan Ornelas MD; Kaleb Billings DO Jean Bear MD Jun 02, 2016 13:33
[2016-06-02] MEDS ORDERED: NICO1PAT5 TRANSDERM (14:20)
--- NOTE | 2016-06-02 14:25 | NUR ---
Discharge He discharged about 1425. Both IVs and telemetry were discontinued intact. His came to pick him up and he was wheeled to his car with all his belongings. Paperwork (discharge instructions, care notes, cardiac catheterization groin site care instructions, hare copy of prescriptions) were discussed and given to him. Questions answered. He thanked staff for his care.
[2016-06-03] MEDS ORDERED: MethylprednisoLONE Sodium Succinate 62.5 mg/mL 2 mL Inj IVPUSH SCH (08:30)
== END 2016-06-02 14:26 | disposition home or self-care (01) | DRG 190 ==
LOC: SED 12:54 → PCC 15:32
PROVIDERS: ADMIT Family Medicine; ATTEND Family Medicine
PROC: 4A033R1 Measurement of Arterial Saturation, Peripheral, Percutaneous Approach (ICD-10-PCS; 2016-05-29)
PROC: 4A023N8 Measurement of Cardiac Sampling and Pressure, Bilateral, Percutaneous Approach (ICD-10-PCS; principal; 2016-06-02)
PROC: B2111ZZ Fluoroscopy of Multiple Coronary Arteries using Low Osmolar Contrast (ICD-10-PCS; 2016-06-02)
PROC: B2151ZZ Fluoroscopy of Left Heart using Low Osmolar Contrast (ICD-10-PCS; 2016-06-02)
PROC: 4A1239Z Monitoring of Cardiac Output, Percutaneous Approach (ICD-10-PCS; 2016-06-02)
DX: I21.4 Non-ST elevation (NSTEMI) myocardial infarction (principal); I50.23 Acute on chronic systolic (congestive) heart failure; E87.0 Hyperosmolality and hypernatremia; J44.1 Chronic obstructive pulmonary disease with (acute) exacerbation; E87.2 Acidosis; I10 Essential (primary) hypertension; E78.5 Hyperlipidemia, unspecified; Z86.73 Personal history of transient ischemic attack (TIA), and cerebral infarction without residual deficits; I48.0 Paroxysmal atrial fibrillation; E03.9 Hypothyroidism, unspecified; K21.9 Gastro-esophageal reflux disease without esophagitis; F17.210 Nicotine dependence, cigarettes, uncomplicated

== ENCOUNTER 2016-06-08 11:35 | Observation (INO) | payer MEDICAID, OTHER ==
[2016-06-08] VITALS (9 sets, daily range): BP systolic 100–132; BP diastolic 56–80; PULSE 60–92; RESP 16–24; O2SAT 93–98
[~2016-06-08] VITALS: Ht 182.9 cm; Wt 86.7 kg
[~2016-06-08 11:35] MED LIST changes: -ALBU18HF INH; +ALBU8.5H2 INH; -AMLO10TA3 PO; +ASPI-973 PO; -ATRINH INH; -CLOP75TA3 PO; -DILT240C89 PO; +FLUT12AE6 IH; +FLUT16SP NS; -GABA-504 PO; -LIDO5CRE17 TOPICAL; +LISI10TA PO; +METO25TA99 PO; +NICO1PAT5 TRANSDERM; +PANT20TA2 PO; -PANT40TA3 PO; +PRE20 PO; +PREG50CA PO; +VENL75CA95 PO
--- NOTE | 2016-06-08 12:02 | ED.REPORT ---
HPI-Dyspnea / Wheezing Date of Service Jun 08, 2016 ED Provider: Calixto Argueta MD 60 year old male who is a current everyday smoker with a history of COPD, atrial fibrillation and HTN presents to the ER via EMS due to acute on chronic shortness of breath onset just prior to arrival. Associated symptom of chest pain, similar to that associated with prior WI. Symptoms were treated with home nebulizer with no relief. Patient denies history of PE or blood clots. He recently had 5 day admission to the hospital here for COPD exacerbation and an NSTEMI, discharged 5 days ago. Last dose of Prednisone was taken yesterday. Nursing Notes Stated Complaint: SHORTNESS OF BREATH Chief Complaint: Respiratory Distress Nursing Notes Reviewed: Yes Allergies: Coded Allergies: No Known Allergies (Unverified Allergy, Unknown, 05/29/16) Scheduled Aspirin (Aspirin) 81 Mg Tablet 81 MG PO DAILY Atorvastatin (Lipitor) 20 Mg Tablet 20 MG PO HS Cholecalciferol (Vitamin D3) (Vitamin D3) 2,000 Unit Tablet 4,000 UNIT PO DAILY Clopidogrel (Clopidogrel) 75 Mg Tablet 75 MG PO DAILY Cyanocobalamin (Vitamin B12) 1,000 Mcg Tablet 1,000 MCG PO DAILY Fluticasone Propionate (Fluticasone Propionate Nasal) 16 Gm [place].susp 1 SPRAY NS BID Fluticasone/Salmeterol (Advair Hfa 230-21 Mcg Inhaler) 12 Gm Hfa.aer.ad 2 PUFF IH BID Levothyroxine (Levothyroxine) 50 Mcg Tablet 50 MCG PO QAM Lisinopril (Lisinopril) 10 Mg Tablet 10 MG PO DAILY Magnesium Oxide (Magnesium) 250 Mg Tablet 250 MG PO DAILY Metoprolol Succinate ER (Metoprolol Succinate ER) 25 Mg Tab.er.24h 25 MG PO DAILY Nystatin (Nystatin) 100,000 Unit/1 Ml Oral.susp 1 DOSE ORAL TID [place]-3/Dha/Epa/Fish Oil (Fish Oil 1,000 mg Softgel) 1 Each Capsule 1 EACH PO DAILY Pantoprazole DR (Pantoprazole DR) 20 Mg Tablet.dr 40 MG PO QAM Pregabalin (Lyrica) 50 Mg Capsule 150 MG PO TID Venlafaxine ER (Venlafaxine ER) 75 Mg Tab.er.24 150 MG PO QAM Venlafaxine ER (Venlafaxine ER) 75 Mg Cap.er.24h 225 MG PO HS Scheduled PRN Albuterol HFA (Proair HFA) 8.5 Gm Hfa.aer.ad 2 PUFFS INH q4-6 hours PRN PRN For Shortness of Breath Albuterol Neb Soln (Albuterol Neb Soln) 1.25 Mg/3 Ml Vial.neb 1 VIAL IH QID PRN PRN For Shortness of Breath Carisoprodol (Soma) 350 Mg Tablet 350 MG PO TID PRN PRN SPASMS Furosemide (Furosemide) 20 Mg Tab 10 MG PO DAILY PRN PRN edema Ipratropium/Albuterol Sulfate (Iprat-Albut 0.5-3(2.5) mg/3 mL Inhalant Soln) 3 Ml Ampul.neb 3 ML IH Q6 PRN PRN For Shortness of Breath Trazodone (Trazodone) 50 Mg Tablet 50 MG PO HS PRN PRN For Insomnia Do not combine with alcohol. oxyCODONE-Acetaminophen 10-325 mg (oxyCODONE-Acetaminophen 10-325 mg) 1 Each Tablet 1 TABLET PO q5-6 hours PRN PRN For Pain General Time Seen by MD: 12:02 Chief Complaint Shortness of breath Hx Obtained From: Patient Arrived By: Ambulance Sudden in Onset?: No Onset Occurred: Just prior to arrival Symptom Duration: Since onset Location: : Substernal Quality: Painful Severity: Current: Mild Severity: Maximum: Mild Associated with: Reports: Chest pain Pertinent Negative: Pt denies other symptoms Context Related History: Reports: COPD, Coronary artery disease Recent Healthcare: Recent doctor visit, Recent hospitalization Similar Sx Previous: Yes Past Medical History Past Medical History [place] sleep apnea neuropathy neck injury No history of PE, or blood clot Reports: COPD, GERD, Hyperlipidemia, Hypertension, Transient ischemic attack Reports: Atrial fibrillation, Thyroid disease Family History Mom: healthy. Dad: (unknown). Smoking History Current Every Day Smoker Social History Alcohol Use: Denies alcohol use Drug Use: Denies drug use Ambulatory Status Independent Review of Systems Constitutional: Denies: Chills, Fever Respiratory: Reports: Shortness of breath, Denies: Non-productive cough Cardiovascular: Reports: Chest pain Musculoskeletal: Denies: Back pain, Extremity pain, Lumbar pain, Neck pain Complete sys rev & neg: except as marked. Physical Exam Initial Vital Signs Vital Signs (First) Date Time Temp Pulse Resp B/P Pulse Ox O2 Delivery O2 Flow Rate FiO2 06/08/16 11:45 92 24 118/77 96 Nasal Cannula 2 06/08/16 12:01 36.4 Initial VS: Reviewed Head / Eyes: Atraumatic, Normocephalic Abdomen / GI: Soft, Non-tender, No guarding, No rebound, No distention Extremities: Vascular intact, Neuro intact, No swelling, No tenderness Skin: Warm, Dry, No cyanosis Neurologic: Alert, Oriented, Nonfocal General/Constitutional: Awake, Alert, Well developed, Well nourished Neck: Atraumatic, Supple, No meningismus, Full range of motion, No swelling, Non-tender, No masses Respiratory / Chest: Breath sounds NL, Breath sounds = bilat, No respiratory distress, No rales, No rhonchi, No wheezing Diminished Breath Sounds: Positive: Decreased bilateral Cardiovascular: Heart rate NL, Regular rhythm, Heart sounds NL, Peripheral circulation NL Interpretation & Diagnostics Lab Results Interpretation Result Diagram: 06/08/16 1218 06/08/16 1218 Test 06/08/16 12:18 06/08/16 14:14 White Blood Count 17.4th/mm3 (3.8-10.1) Red Blood Count 5.05mil/mm3 (4.40-5.80) Hemoglobin 14.8g/dL (13.8-17.2) Hematocrit 47.1% (41.0-50.0) Mean Corpuscular Volume 93.3fL (81-100) Mean Corpuscular Hemoglobin 29.3pg (27.0-35.0) Mean Corpuscular Hemoglobin Concent 31.4% (32.0-37.0) Red Cell Distribution Width 15.7% (12.3-15.4) Platelet Count 272bil/L (150-400) Neutrophils (%) (Auto) 46.7% (40-74) Lymphocytes (%) (Auto) 37.6% (14-46) Monocytes (%) (Auto) 11.5% (4-12) Eosinophils (%) (Auto) 3.2% (0-5) Basophils (%) (Auto) 0.2% (0-3) Prothrombin Time 10.6sec (8.1-12.5) Prothromb Time International Ratio 0.99ratio D-Dimer 0.6mg/L (<0.50) Sodium Level 145mEq/L (134-144) Potassium Level 4.7mEq/L (3.5-5.2) Chloride Level 106mEq/L (97-108) Carbon Dioxide Level 23mmol/L (18-29) Blood Urea Nitrogen 12mg/dL (6-24) Creatinine 1.05mg/dL (0.76-1.27) Estimat Glomerular Filtration Rate 77mL/min (>59) Glucose Level 136mg/dL (60-99) Calcium Level 9.1mg/dL (8.5-10.1) Total Bilirubin 0.2mg/dL (0.0-1.2) Aspartate Amino Transf (AST/SGOT) 19U/L (0-50) Alanine Aminotransferase (ALT/SGPT) 20U/L (0-44) Alkaline Phosphatase 114U/L (25-150) Troponin T 0.018ug/L (0.0-0.011) Pro-B-Type Natriuretic Peptide 1357pg/mL (0-210) Total Protein 6.1g/dL (6.4-8.4) Albumin 3.9g/dL (3.4-5.0) Urine Color Straw (YELLOW) Urine Appearance Hazy (CLEAR,HAZY) Urine pH 7.0 (5.0-8.0) Urine Specific [place] 1.010 (1.003-1.035) Urine Protein Negativemg/dL (NEG,TRACE) Urine Glucose (UA) Negativemg/dL (NEGATIVE) Urine Ketones Negativemg/dL (NEGATIVE) Urine Occult Blood Negative (NEGATIVE) Urine Nitrite Negative (NEGATIVE) Urine Bilirubin Negative (NEGATIVE) Urine Urobilinogen Normalmg/dL (NORMAL) Urine Leukocyte Esterase Negative (NEGATIVE) Urine RBC 0-2/hpf (0-2) Urine WBC 0-5/hpf (0-5) Urine Epithelial Cells Occasional/hpf (NONE-MOD) Urine Crystals None seen (NONE SEEN) Urine Bacteria None/hpf (NONE-FEW) Urine Hyaline Casts None/lpf (NONE) Urine Granular Casts None seen (NONE SEEN) Urine Waxy Casts None seen (NONE SEEN) Urine Red Blood Cell Casts None seen (NONE SEEN) Urine White Blood Cell Casts None seen (NONE SEEN) Urine Mucus None seen (None Seen) Urine Trichomonas None seen (NONE SEEN) Urine Yeast None (NONE SEEN) Urinalysis Comment None Urine Culture Reflexed Not indicated ECG Interpretation ECG Interpretation: Sinus rhythm, rate [address] elevation T wave inversions in 1, v5, v6, unchanged from prior. Slight St depression in 3, also unchanged from prior. Time: 12:40 Interpreted by: ED physician X-Ray Chest Interpretation Chest Xray Interpretation: IMPRESSION: No acute cardiopulmonary disease. Dictated by: Sergio Rosales RRA Interpreted: Jerica Rodas MD on 06/08/2016 at 14:22 Transcribed by: DOTTIE on 06/08/2016 at 14:22 View: Portable, 1 view Interpretation / Wet Read by: Interpret - Radiologist CT Chest Interpretation IMPRESSION: 1. No pulmonary embolus. 2. No change in left adrenal adenoma. 3. No acute process. Dictated by: Judson Naranjo M.D. on 06/08/2016 at 14:05 Approved by: Judson Naranjo M.D. on 06/08/2016 at 14:07 Study type: CT pulm angiogram Interpretation / Wet Read by: Interpret - Radiologist Re-Eval/Medical Decision Med Decision/Clinical Course 60-year-old male with recent admission for NSTEMI, COPD exacerbation presenting with chest pain and shortness of breath today. He ran out of his steroids yesterday. Started feeling more short of breath today. Nebulizers did not help. Paramedics found him with oxygen saturation in the low 70s. They gave him nebulizers and he improved. He also reports some chest pain earlier today that felt like his [place]. On arrival patient satting 90%. He did have significant wheezing and poor air movement. He was given nebulizers, magnesium, steroids and is breathing normalized. His troponins are 0.018 which is decreased from previous discharge. Discussed with cardiology recommended aspirin and trending with no heparin drip at this time. Patient will be admitted for COPD exacerbation and chest pain. Source of Hx: Old records Re-Evaluation/Progress : Time of Eval: 14:21 Re-Evaluation/Progress Note: Discussed lab and radiology results and plan to admit. Patient is amenable to the plan. All other questions addressed. Consultation #1: Referral / Consult Name: Evita Shaver MD Consulted With: Cardiology Call Returned at: 13:12 Note: Agrees to consult. No heparin. Consultation #2: Referral / Consult Name: Ricky Acevedo Consulted With: Hospitalist Call Returned at: 15:06 Child Care Giver: Agrees with eval, Agrees with plan, Accepts admit Counseled Regarding: Diagnosis, Lab results, Need for admission Discharge & Departure Impression: Primary Impression: COPD exacerbation Additional Impression: Elevated troponin Disposition: ADMITTED TO HOSPITAL Discharge Condition All VS Reviewed: Yes Condition: Stable Referrals: Kaleb Billings DO (PCP) Latisha Attestation Portions of this note were transcribed by Pb Taylor. I, Dr. rAgueta, personally performed the history, physical exam and medical decision-making; I reviewed and confirmed the accuracy of the information in the transcribed note. Signed by: Latisha Tubbs, 06/08/2016 - 15:06 copies to: Kaleb Billings Ben M MD Jun 08, 2016 12:02 PB TAYLOR Jun 08, 2016 12:11
[2016-06-08] MEDS ORDERED: MethylprednisoLONE Sodium Succinate 62.5 mg/mL 2 mL Inj IVPUSH ONE (12:10)
[2016-06-08] MEDS ORDERED: Albuterol-Ipratropium 3 mL Inhalation Solution NEB ONE (12:10)
[2016-06-08] MEDS ORDERED: Magnesium Sulf 2 Gm/50mL Water 2 GM in IV Premix 1 EACH IV ONE (12:10)
[2016-06-08 12:24] LABS: BASOPHILS % (AUTO) 0.2 % (0-3); EOSINOPHILS % (AUTO) 3.2 % (0-5); MONOCYTES % (AUTO) 11.5 % (4-12); Mean Corpuscular Hemoglobin 29.3 pg (27.0-35.0); Mean Corpuscular Volume 93.3 fL (81-100); NEUTROPHILS % (AUTO) 46.7 % (40-74); Platelet Count 272 bil/L (150-400)
[2016-06-08 12:41] LABS: TROPONIN T 0.018 ug/L (0.0-0.011)
[2016-06-08 12:57] LABS: INR 0.99 ratio
--- NOTE | 2016-06-08 14:09 | DRSVH ---
PROCEDURE: CT ANGIO CHEST PULMONARY EMBOLISM ([id number]) INDICATIONS: dyspnea elevated ddimer TECHNIQUE: After the administration of intravenous contrast, 2 mm thick sections acquired from the pulmonary api dixie to the posterior costophrenic angles. 3-dimensional maximum intensity projection (MIP) coronal a nd sagittal reformats were then acquired through the thorax. For radiation dose reduction, the follo wing was used: automated exposure control, adjustment of mA and/or kV according to patient size. COMPARISON: [facility], CT, CT ANGIO CHEST PE, 07/07/2015, 15:37. FINDINGS: Image quality: Excellent. Pulmonary arteries: Pulmonary arteries are normal in size, and demonstrate no intraluminal filling d efects to suggest central pulmonary embolism. Lungs and pleura: No evidence of pneumonia, nor edema. Mild dependent lower lobe atelectasis is prese nt. No pleural effusions or pneumothorax. Central and peripheral airways are patent. Mediastinum: Heart size is normal, without pericardial effusion. No mediastinal or hilar adenopathy . Thoracic aorta is normal in caliber and enhancement. Esophagus is normal in caliber, without hiat al hernia. Bones and chest wall: No suspicious bony lesions. Ribs and thoracic spine appear intact throughout. Thyroid gland is within normal limits. No axillary or supraclavicular adenopathy. Abdomen: Visualized portions of the upper abdomen demonstrate no change in the left adrenal adenoma. IMPRESSION: 1. No pulmonary embolus. 2. No change in left adrenal adenoma. 3. No acute process. Dictated by: Judson Naranjo M.D. on 06/08/2016 at 14:05 Approved by: Judson Naranjo M.D. on 06/08/2016 at 14:07
[2016-06-08 14:23] LABS: APPEARANCE,URINE HAZY (CLEAR,HAZY); COLOR,URINE STRAW (YELLOW); OCCULT BLOOD,URINE NEGATIVE (NEGATIVE); UROBILINOGEN,URINE NORMAL (NORMAL)
--- NOTE | 2016-06-08 14:23 | DRSVH ---
PROCEDURE: X-RAY CHEST ONE VIEW, PORTABLE ([id number]) INDICATIONS: dyspnea TECHNIQUE: One view of the chest was acquired. COMPARISON: [facility], CR, XR CHEST 1VW (PORTABLE), 05/29/2016, 13:03. FINDINGS: Surgical changes and devices: None. Lungs and pleura: No pleural effusions or pneumothorax. Lungs are clear. Lung volumes are increase d with flattening of the hemidiaphragms suggesting COPD. Mediastinum: Mediastinal contours appear normal. Heart size is normal. Bones and chest wall: No suspicious bony lesions. Overlying soft tissues appear unremarkable. IMPRESSION: No acute cardiopulmonary disease. Dictated by: Sergio Rosales RR Interpreted: Jerica Rodas MD on 06/08/2016 at 14:22 Transcribed by: DOTTIE on 06/08/2016 at 14:22 Approved by: Jerica Rodas MD, PhD on 06/08/2016 at 17:02
[2016-06-08] MEDS ORDERED: CLOP75TA28 PO (15:44)
[2016-06-08] MEDS ORDERED: NYST1000 ORAL (15:44)
--- NOTE | 2016-06-08 16:00 | NUR ---
Admission Patient arrived to unit via gurney. Patient alert and oriented. Reporting shortness of breath-"better now, but I still get it with exertion". Patient denies chest pain but reports slight chest pressure, "not an elephant, maybe a small dog on my chest". Patient indicated pressure is mid sternal. Patient was discharged June 02, 2016 following a NSTEMI. First troponin elevated, second troponin WNL. Patient on 2 Ltr O2 NC, O2 sats 96%. Patient has steroid induced elevated blood sugars. Blood sugar checks, consistent carb diet and insulin ordered.
[2016-06-08] MEDS ORDERED: Albuterol 1.25 mg/3 mL Inhalation Solution NEB PRN (17:40)
--- NOTE | 2016-06-08 17:48 | PCM.HPMED ---
Subjective Date of Service Jun 08, 2016 Primary Provider: Admitting Physician: Ricky Acevedo DO Primary Care Physician: Kaleb Billings DO Attending Physician: Ricky Acevedo DO Admit Status: From the Emergency Department Chief Complaint: "chest tightness" History of Present Illness: Mr. Heath Garcia is a 60-year-old male with history of COPD, NSTEMI, atrial fibrillation, hypertension, obstructive sleep apnea, and transient ischemic attack who presented today via EMS due to shortness of breath and chest tightness that started earlier today. Patient states that he was having a bowel movement when he noticed that he could longer breathe and his chest felt tight. At that point, he called 911. He states that this chest tightness feels similar to the last time he came to the hospital. The chest tightness is retrosternal and does not radiate anywhere. No aggravating or relieving factors. He has associated diaphoresis. He noticed that both of his legs are swollen this morning but it resolved. He does not have a fever, chills, cough, nasal congestion, sore throat, nausea, vomiting, or abdominal pain. He also denies palpitations and orthopnea. He reports that his chest tightness was relieved with nitroglycerin while in the emergency department. He tried using his home nebulizer without any relief. His last dose of prednisone was yesterday. He was hospitalized for a NSTEMI and COPD exacerbation and was discharged 5 days ago. From the emergency department note, paramedics found him with oxygen saturation in the low 70s. He was given nebulizers and he improved. Upon arrival to the emergency department, his oxygen saturation was 90%. He did have significant wheezing and poor air movement. He was given nebulizers, magnesium, and steroids. His breathing improved. Cardiology was consulted by the emergency department. Cardiology recommended aspirin and trending troponin with no heparin drip at this time. Chest x-ray did not show any acute cardiopulmonary changes and CT chest angiogram showed no pulmonary embolism. Review of Systems: A comprehensive review of systems was conducted with the patient and found to be negative except as above in the History of Present Illness. Allergies Coded Allergies: No Known Allergies (Unverified Allergy, Unknown, 05/29/16) Home Medications Aspirin (Aspirin) 81 Mg Tablet 81 MG PO DAILY Atorvastatin (Lipitor) 20 Mg Tablet 20 MG PO HS Cholecalciferol (Vitamin D3) (Vitamin D3) 2,000 Unit Tablet 4,000 UNIT PO DAILY Clopidogrel (Clopidogrel) 75 Mg Tablet 75 MG PO DAILY Cyanocobalamin (Vitamin B12) 1,000 Mcg Tablet 1,000 MCG PO DAILY Fluticasone Propionate (Fluticasone Propionate Nasal) 16 Gm [place].susp 1 SPRAY NS BID Fluticasone/Salmeterol (Advair Hfa 230-21 Mcg Inhaler) 12 Gm Hfa.aer.ad 2 PUFF IH BID Levothyroxine (Levothyroxine) 50 Mcg Tablet 50 MCG PO QAM Lisinopril (Lisinopril) 10 Mg Tablet 10 MG PO DAILY Magnesium Oxide (Magnesium) 250 Mg Tablet 250 MG PO DAILY Metoprolol Succinate ER (Metoprolol Succinate ER) 25 Mg Tab.er.24h 25 MG PO DAILY Nystatin (Nystatin) 100,000 Unit/1 Ml Oral.susp 1 DOSE ORAL TID [place]-3/Dha/Epa/Fish Oil (Fish Oil 1,000 mg Softgel) 1 Each Capsule 1 EACH PO DAILY Pantoprazole DR (Pantoprazole DR) 20 Mg Tablet.dr 40 MG PO QAM Pregabalin (Lyrica) 50 Mg Capsule 150 MG PO TID Venlafaxine ER (Venlafaxine ER) 75 Mg Tab.er.24 150 MG PO QAM Venlafaxine ER (Venlafaxine ER) 75 Mg Cap.er.24h 225 MG PO HS PMH NSTEMI Sleep apnea Peripheral neuropathy Neck injury in 1998 COPD Hypertension Transient ischemic attack 13-14 years ago Atrial fibrillation diagnosed during last hospitalization Hypothyroidism Chronic back pain Depression Surgical History Partial colectomy for diverticulitis Cervical spine discectomy Rhinoseptoplasty Family History No family history of coronary artery disease Mother and father both alive and well. 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 External ears without defect. Pupils equal, round, and reactive to light and accommodation. Anicteric sclerae, moist conjunctivae, and no lid lag. Oropharynx free of erythema and cobble stoning with moist mucosa. Neck: Supple with full range of motion. No jugular venous distension. No bruits. No lymphadenopathy or thyromegaly. Cardiovascular: Regular rate and rhythm with no murmurs, rubs, or gallops appreciated Pulmonary: End expiratory wheezes bilaterally and rhonchi at the right lung base. Normal respiratory effort with no use of accessory muscles. Abdomen: Bowel tones present. Soft, nontender, nondistended. No hepatosplenomegaly or masses appreciated. Extremities: No clubbing, cyanosis, edema, or lymphadenopathy appreciated. Skin: Normal temperature, turgor, and texture; no rash, ulcers, or subcutaneous nodules appreciated. Neurological: Cranial nerves grossly intact. Normal muscle strength, tone, and bulk. Reflexes, coordination, and sensory function within normal limits. No known gait impairment. Psychiatric: Normal mood and affect. Alert and oriented to person, place, and time. Lab and Diagnostics Result Diagram: 06/08/16 1218 06/08/16 1218 X-Rays, CTs and MRIs PROCEDURE: X-RAY CHEST ONE VIEW, PORTABLE IMPRESSION: No acute cardiopulmonary disease. Approved by: Jerica Rodas MD, PhD on 06/08/2016 at 17:02 PROCEDURE: CT ANGIO CHEST PULMONARY EMBOLISM IMPRESSION: 1. No pulmonary embolus. 2. No change in left adrenal adenoma. 3. No acute process. Approved by: Judson Naranjo M.D. on 06/08/2016 at 14:07 Assessment & Plan Mr. Heath Garcia is a 60-year-old male with history of COPD, atrial fibrillation, hypertension, obstructive sleep apnea, and transient ischemic attack who presented today via EMS due to shortness of breath and chest tightness that started earlier today 1. Acute hypoxic respiratory failure, exacerbation of chronic obstructive pulmonary disease, present on admission. Active. -Documented oxygen saturation of 70% by EMS with known history of COPD and recent hospitalization for a COPD exacerbation -Oxygen as needed -DuoNeb nebulizer treatments schedules while patient is awake -Albuterol nebulizer every 2 hours as needed for wheezing, dyspnea, or cough -Prednisone 40 mg BID for now and will adjust according to patient's clinical status tomorrow -Hold off on starting antibiotics for now and consider starting tomorrow if patient develops signs of an infection like fever or cough 2. Chest pain, recurrent, present on admission. Active. -Patient reports that it is similar to the chest pain that he felt when he presented for the NSTEMI. EKG is unchanged from prior EKGs. -Troponin mildly elevated in ED but now negative -Continue to trend troponin every 6 hours x3 -Nitroglycerin and morphine as needed for chest pain -EKG as needed for chest pain -Cardiology consulted and following. Their time and recommendations are appreciated. -Monitor on telemetry -Aspirin 81 mg daily, atorvastatin 20 mg daily, omega 3 fatty acids daily, clopidogrel 75 mg daily, metoprolol 25 mg daily, and lisinopril 10 mg once daily 3. Hypertension, chronic. -Continue patient's home medications of lisinopril 10 mg and metoprolol 25 mg daily 4. Atrial fibrillation, chronic. -Continue patient's home medications of metoprolol succinate 25 mg daily and magnesium oxide 400 mg daily -Monitor on telemetry 5. Hypothyroidism, chronic. -Continue patient's home medication of levothyroxine 50 mcg once daily 6. Chronic back pain with peripheral neuropathy -Continue patient's home medications of carisoprodol 350 mg TID as needed for spasm and pregabalin 150 mg TID 7. Depression, chronic. -Continue patient's home medications of venlafaxine XR 225 mg at bedtime and trazodone 50 mg at bedtime as needed for insomnia. 8. Sleep apnea, chronic. -Patient is on CPAP at home -Supplemental oxygen at night until the patient brings in his CPAP. Continued Protonix once daily for GERD. Senna and MiraLAX as needed for constipation. Zofran as needed for nausea and vomiting VTE Prophylaxis: Sub-Q Heparin (Unfractionated) Resuscitation Status: DNR/DNI:Do Not Resuscitate/Intubate Time spent 50 minutes Attending Statement I have seen and evaluated patient at bedside in addition to directly supervising care provided by resident physician. I agree with above documentation. Kerri Calvo DO Jun 08, 2016 17:47 Ricky Acevedo DO Jun 09, 2016 08:17
[2016-06-08] MEDS ORDERED: Lidocaine 1%-Epi 1:100,000 20 mL Inj ONE (17:56)
[2016-06-08] MEDS: 0.9% Sodium Chloride 1,000 ML IV SCH (17:56)
[2016-06-08] MEDS ORDERED: Polyethylene Glycol (PEG) 17 Gm Powder PO PRN (18:05)
[2016-06-08] MEDS ORDERED: Ondansetron 2 mg/mL 2 mL Inj IVPUSH PRN (18:05)
[2016-06-08] MEDS ORDERED: Glucose 40% Oral Gel 15 Gm Tube PO PRN (18:30)
[2016-06-08] MEDS: Albuterol-Ipratropium 3 mL Inhalation Solution NEB SCH (20:24)
[2016-06-08] MEDS: predniSONE 20 mg Tablet PO SCH (20:25)
[2016-06-08] MEDS: Fluticasone 0.05% 15 Spray/2 Gm 16 Gm Nasal Spray NASAL SCH (20:28)
[2016-06-08] MEDS ORDERED: Venlafaxine XR 75 mg ER24 Capsule PO SCH (21:00)
[2016-06-08] MEDS: Insulin LISPRO 300 Unit/3 mL Inj SUBQ SCH (22:00)
[2016-06-09] VITALS (8 sets, daily range): BP systolic 133–139; BP diastolic 75–88; PULSE 55–73; RESP 16–20; O2SAT 96–100
[2016-06-09] MEDS: Heparin 5,000 Unit/mL Inj SUBQ SCH ×3 (01:00→16:30)
[2016-06-09] MEDS: 0.9% Sodium Chloride 1,000 ML IV SCH ×2 (03:42→14:11)
--- NOTE | 2016-06-09 03:59 | NUR ---
NOC shift note Patient slept intermittently through the night. Denies shortness of breath, lungs are clear but decreased. Remains on 2L nasal cannula. Reported neck pain around 2100, PRN Soma effective. Denies cardiac chest pain. Patient is using call light for needs, intentional rounding in place.
[2016-06-09 05:46] LABS: BASOPHILS % (AUTO) 0.1 % (0-3); EOSINOPHILS % (AUTO) 0.1 % (0-5); MONOCYTES % (AUTO) 4.1 % (4-12); Mean Corpuscular Hemoglobin 28.6 pg (27.0-35.0); Mean Corpuscular Volume 90.9 fL (81-100); NEUTROPHILS % (AUTO) 88.6 % (40-74); Platelet Count 220 bil/L (150-400)
[2016-06-09] MEDS ORDERED: Pantoprazole 40 mg ER24 Tablet PO SCH (06:30)
[2016-06-09] MEDS: Insulin LISPRO 300 Unit/3 mL Inj SUBQ SCH ×3 (08:00→17:28)
[2016-06-09] MEDS: Albuterol-Ipratropium 3 mL Inhalation Solution NEB SCH ×3 (08:06→16:00)
[2016-06-09] MEDS ORDERED: Omega-3 Fatty Acids 1,000 mg Capsule PO SCH (08:30)
[2016-06-09] MEDS ORDERED: MeTOProlol XL 25 mg ER24 Tablet PO SCH (08:30)
[2016-06-09] MEDS: predniSONE 20 mg Tablet PO SCH ×2 (09:03→18:33)
[2016-06-09] MEDS: Fluticasone 0.05% 15 Spray/2 Gm 16 Gm Nasal Spray NASAL SCH (09:07)
[2016-06-09] MEDS ORDERED: oxyCODONE-Acetamin 5-325 mg Tablet PO PRN (14:25)
--- NOTE | 2016-06-09 15:18 | NUR ---
Pain/O2 Patient denies current chest pain-reports very "minimal pressure". Reporting head ache and neck pain 5/10 which he characterizes as "normal". Head/neck pain relieved with narcotic pain relief. Patient weaned off O2, sats are 96% RA.
[2016-06-09] MEDS ORDERED: PRED-508 PO (15:35)
--- NOTE | 2016-06-09 15:53 | PCM.DIMED ---
Kerri Calvo DO 06/09/16 1540: Discharge Instructions Date of Service Jun 09, 2016 Dates of Hospitalization Jun 08, 2016 at 15:31 Discharge Diagnosis Discharge Diagnosis 1. Acute hypoxic respiratory failure, exacerbation of chronic obstructive pulmonary disease 2. Chest pain 3. Hypertension 4. Atrial fibrillation 5. Hypothyroidism 6. Chronic back pain with peripheral neuropathy 7. Depression 8. Sleep apnea Diet Heart Healthy Activity Limited until seen by PCP Call your provider Fever or Chills, Shortness of breath, Bleeding, Chest pain, Weakness (unilateral ) Patient Instructions You will continue a steroid taper for your COPD. Take 60 mg once daily for 3 days, 40 mg once daily for 3 days, 20 mg once daily for 3 days, and then 10 mg once daily for 3 days. Please follow up with your primary care provider as previously scheduled to discuss extending the steroid taper. If you experience worsening symptoms, then please return to the hospital. Continue all other medications as previously prescribed. Continue supplemental oxygen with a goal oxygen saturation of 89-92%. Follow up with your primary care provider within 1 week. Follow up with cardiology in 2-3 weeks. We strongly recommend you to stop using tobacco products. Follow-up Provider: Kaleb Billings DO Follow-up with PCP in: 1 week Provider: Logan Ornelas MD Follow-up in: 2 weeks (2-3 weeks) Ricky Acevedo DO 06/10/16 1536: Discharge Instructions Attending's Statement Read and agree Kerri Calvo DO Jun 09, 2016 15:40 Ricky Acevedo DO Jun 10, 2016 15:36
--- NOTE | 2016-06-09 18:20 | PCM.DC.MED ---
Discharge Summary Date of Service Jun 09, 2016 Dates of Hospitalization Date of Hospital Admission Jun 08, 2016 at 15:31 Date of Discharge: Jun 09, 2016 Providers: Admitting Physician: Ricky Acevedo DO Primary Care Physician: Kaleb Billings DO Attending Physician: Ricky Acevedo DO Diagnosis at Time of Discharge Diagnosis at Time of Discharge 1. Acute hypoxic respiratory failure, exacerbation of chronic obstructive pulmonary disease 2. Chest pain 3. Hypertension 4. Atrial fibrillation 5. Hypothyroidism 6. Chronic back pain with peripheral neuropathy 7. Depression 8. Sleep apnea Procedures XRay, CTs & MRIs PROCEDURE: X-RAY CHEST ONE VIEW, PORTABLE IMPRESSION: No acute cardiopulmonary disease. Approved by: Jerica Rodas MD, PhD on 06/08/2016 at 17:02 PROCEDURE: CT ANGIO CHEST PULMONARY EMBOLISM IMPRESSION: 1. No pulmonary embolus. 2. No change in left adrenal adenoma. 3. No acute process. Approved by: Judson Naranjo M.D. on 06/08/2016 at 14:07 Brief History From the history and physical performed by Dr. Kerri Calvo on 06/08/2016: Mr. Heath Garcia is a 60-year-old male with history of COPD, NSTEMI, atrial fibrillation, hypertension, obstructive sleep apnea, and transient ischemic attack who presented today via EMS due to shortness of breath and chest tightness that started earlier today. Patient states that he was having a bowel movement when he noticed that he could longer breathe and his chest felt tight. At that point, he called 911. He states that this chest tightness feels similar to the last time he came to the hospital. The chest tightness is retrosternal and does not radiate anywhere. No aggravating or relieving factors. He has associated diaphoresis. He noticed that both of his legs are swollen this morning but it resolved. He does not have a fever, chills, cough, nasal congestion, sore throat, nausea, vomiting, or abdominal pain. He also denies palpitations and orthopnea. He reports that his chest tightness was relieved with nitroglycerin while in the emergency department. He tried using his home nebulizer without any relief. His last dose of prednisone was yesterday. He was hospitalized for a NSTEMI and COPD exacerbation and was discharged 5 days ago. From the emergency department note, paramedics found him with oxygen saturation in the low 70s. He was given nebulizers and he improved. Upon arrival to the emergency department, his oxygen saturation was 90%. He did have significant wheezing and poor air movement. He was given nebulizers, magnesium, and steroids. His breathing improved. Cardiology was consulted by the emergency department. Cardiology recommended aspirin and trending troponin with no heparin drip at this time. Chest x-ray did not show any acute cardiopulmonary changes and CT chest angiogram showed no pulmonary embolism. Hospital Course Mr. Heath Garcia is a 60-year-old male with history of COPD, atrial fibrillation, hypertension, obstructive sleep apnea, and transient ischemic attack who presented today via EMS due to shortness of breath and chest tightness that started earlier today 1. Acute hypoxic respiratory failure, exacerbation of chronic obstructive pulmonary disease, present on admission. Active. -Documented oxygen saturation of 70% by EMS with known history of COPD and recent hospitalization for a COPD exacerbation. No productive cough or fever indicative of an infection. Procalcitonin within normal limits. -Oxygen as needed -DuoNeb nebulizer treatments scheduled while patient is awake -Albuterol nebulizer every 2 hours as needed for wheezing, dyspnea, or cough were available -Prednisone 40 mg BID for one day. Patient started on prednisone taper at discharge. Recommend primary care provider to possibly extend or to change prednisone taper based on patient's clinical status at his follow up appointment. 2. Chest pain, recurrent, present on admission. Active. -Patient reported that it is similar to the chest pain that he felt when he presented for the NSTEMI. EKG was unchanged from prior EKGs. -Troponin mildly elevated in ED but then negative x2 -Nitroglycerin and morphine were available as needed for chest pain -Aspirin 81 mg daily, atorvastatin 20 mg daily, omega 3 fatty acids daily, clopidogrel 75 mg daily, metoprolol 25 mg daily, and lisinopril 10 mg once daily -Cardiology consulted and patient was discussed with them. Patient's echocardiogram, coronary and left ventricular angiograms, and CT chest angiogram were all reviewed. Patient does not have significant coronary artery disease. Most likely, he had stress cardiomyopathy based on the concentric hypokinesis noted at the middle of his heart. -Patient should follow up with cardiology in 2-3 weeks as previously requested at his prior discharge. -Continue to monitor cardiac catheterization right femoral access site. 3. Hypertension, chronic. -Continued patient's home medications of lisinopril 10 mg and metoprolol 25 mg daily 4. Atrial fibrillation, chronic. -Continued patient's home medications of metoprolol succinate 25 mg daily and magnesium oxide 400 mg daily 5. Hypothyroidism, chronic. -Continued patient's home medication of levothyroxine 50 mcg once daily 6. Chronic back pain with peripheral neuropathy -Continued patient's home medications of carisoprodol 350 mg TID as needed for spasm and pregabalin 150 mg TID 7. Depression, chronic. -Continued patient's home medications of venlafaxine XR 225 mg at bedtime and trazodone 50 mg at bedtime as needed for insomnia. 8. Sleep apnea, chronic. -Patient was on CPAP at home and had it overnight in the hospital Exam Vital Signs (Last) Date Time Temp Pulse Resp B/P Pulse Ox O2 Delivery O2 Flow Rate FiO2 06/09/16 13:31 36.8 55 18 134/75 96 Room Air 06/09/16 09:35 2.00 Exam General: No acute distress with nasal cannula in place, well-developed, well- nourished, appropriately interactive HEENT: Normocephalic, atraumatic. External ears without defect. Pupils equal, round, and reactive to light and accommodation. Anicteric sclerae, moist conjunctivae, and no lid lag. Oropharynx free of erythema and cobble stoning with moist mucosa. Neck: Supple with full range of motion. No jugular venous distension. No bruits. No lymphadenopathy or thyromegaly. Cardiovascular: Regular rate and rhythm with no murmurs, rubs, or gallops appreciated Pulmonary: Clear to auscultation bilaterally with no wheezing, rhonchi, or rales. Normal respiratory effort with no use of accessory muscles. Abdomen: Bowel tones present. Soft, nontender, nondistended. No hepatosplenomegaly or masses appreciated. Extremities: No clubbing, cyanosis, edema, or lymphadenopathy appreciated. Skin: Normal temperature, turgor, and texture; no rash, ulcers, or subcutaneous nodules appreciated. Neurological: Cranial nerves grossly intact. Normal muscle strength, tone, and bulk. Reflexes, coordination, and sensory function within normal limits. No known gait impairment. Psychiatric: Normal mood and affect. Alert and oriented to person, place, and time. Test 06/08/16 12:18 06/08/16 14:14 06/08/16 20:37 06/09/16 05:20 Prothrombin Time 10.6sec (8.1-12.5) Prothromb Time International Ratio 0.99ratio D-Dimer 0.6mg/L (<0.50) Total Bilirubin 0.2mg/dL (0.0-1.2) Aspartate Amino Transf (AST/SGOT) 19U/L (0-50) Alanine Aminotransferase (ALT/SGPT) 20U/L (0-44) Alkaline Phosphatase 114U/L (25-150) Pro-B-Type Natriuretic Peptide 1357pg/mL (0-210) Total Protein 6.1g/dL (6.4-8.4) Albumin 3.9g/dL (3.4-5.0) Urine Color Straw (YELLOW) Urine Appearance Hazy (CLEAR,HAZY) Urine pH 7.0 (5.0-8.0) Urine Specific [place] 1.010 (1.003-1.035) Urine Protein Negativemg/dL (NEG,TRACE) Urine Glucose (UA) Negativemg/dL (NEGATIVE) Urine Ketones Negativemg/dL (NEGATIVE) Urine Occult Blood Negative (NEGATIVE) Urine Nitrite Negative (NEGATIVE) Urine Bilirubin Negative (NEGATIVE) Urine Urobilinogen Normalmg/dL (NORMAL) Urine Leukocyte Esterase Negative (NEGATIVE) Urine RBC 0-2/hpf (0-2) Urine WBC 0-5/hpf (0-5) Urine Epithelial Cells Occasional/hpf (NONE-MOD) Urine Crystals None seen (NONE SEEN) Urine Bacteria None/hpf (NONE-FEW) Urine Hyaline Casts None/lpf (NONE) Urine Granular Casts None seen (NONE SEEN) Urine Waxy Casts None seen (NONE SEEN) Urine Red Blood Cell Casts None seen (NONE SEEN) Urine White Blood Cell Casts None seen (NONE SEEN) Urine Mucus None seen (None Seen) Urine Trichomonas None seen (NONE SEEN) Urine Yeast None (NONE SEEN) Urinalysis Comment None Urine Culture Reflexed Not indicated Troponin T < 0.010ug/L (0.0-0.011) White Blood Count 18.9th/mm3 (3.8-10.1) Red Blood Count 4.82mil/mm3 (4.40-5.80) Hemoglobin 13.8g/dL (13.8-17.2) Hematocrit 43.8% (41.0-50.0) Mean Corpuscular Volume 90.9fL (81-100) Mean Corpuscular Hemoglobin 28.6pg (27.0-35.0) Mean Corpuscular Hemoglobin Concent 31.5% (32.0-37.0) Red Cell Distribution Width 15.5% (12.3-15.4) Platelet Count 220bil/L (150-400) Neutrophils (%) (Auto) 88.6% (40-74) Lymphocytes (%) (Auto) 6.7% (14-46) Monocytes (%) (Auto) 4.1% (4-12) Eosinophils (%) (Auto) 0.1% (0-5) Basophils (%) (Auto) 0.1% (0-3) Sodium Level 143mEq/L (134-144) Potassium Level 4.4mEq/L (3.5-5.2) Chloride Level 107mEq/L (97-108) Carbon Dioxide Level 23mmol/L (18-29) Blood Urea Nitrogen 15mg/dL (6-24) Creatinine 0.77mg/dL (0.76-1.27) Estimat Glomerular Filtration Rate 110mL/min (>59) Glucose Level 120mg/dL (60-99) Calcium Level 8.7mg/dL (8.5-10.1) Procalcitonin 0.05ng/mL (0.00-0.08) Discharge Medications Discharge Medications Aspirin (Aspirin) 81 Mg Tablet 81 MG PO DAILY Prescribed by: BRANDON VEGA MD Atorvastatin (Lipitor) 20 Mg Tablet 20 MG PO HS (Reported) Cholecalciferol (Vitamin D3) (Vitamin D3) 2,000 Unit Tablet 4,000 UNIT PO DAILY (Reported) Clopidogrel (Clopidogrel) 75 Mg Tablet 75 MG PO DAILY (Reported) Cyanocobalamin (Vitamin B12) 1,000 Mcg Tablet 1,000 MCG PO DAILY (Reported) Fluticasone Propionate (Fluticasone Propionate Nasal) 16 Gm [place].susp 1 SPRAY NS BID (Reported) Fluticasone/Salmeterol (Advair Hfa 230-21 Mcg Inhaler) 12 Gm Hfa.aer.ad 2 PUFF IH BID (Reported) Levothyroxine (Levothyroxine) 50 Mcg Tablet 50 MCG PO QAM (Reported) Lisinopril (Lisinopril) 10 Mg Tablet 10 MG PO DAILY Prescribed by: BRANDON VEGA MD Magnesium Oxide (Magnesium) 250 Mg Tablet 250 MG PO DAILY (Reported) Metoprolol Succinate ER (Metoprolol Succinate ER) 25 Mg Tab.er.24h 25 MG PO DAILY Prescribed by: BRANDON VEGA MD Nystatin (Nystatin) 100,000 Unit/1 Ml Oral.susp 1 DOSE ORAL TID (Reported) [place]-3/Dha/Epa/Fish Oil (Fish Oil 1,000 mg Softgel) 1 Each Capsule 1 EACH PO DAILY (Reported) Pantoprazole DR (Pantoprazole DR) 20 Mg Tablet.dr 40 MG PO QAM (Reported) Prednisone (Deltasone) 20 Mg Tablet 60 MG PO DIRECTED Take 60 mg once daily for 3 days, then 40 mg once daily for 3 days, then 20 mg once daily for 3 days, and then 10 mg once daily for 3 days Prescribed by: KERRI CALVO DO Pregabalin (Lyrica) 50 Mg Capsule 150 MG PO TID (Reported) Venlafaxine ER (Venlafaxine ER) 75 Mg Tab.er.24 150 MG PO QAM (Reported) Venlafaxine ER (Venlafaxine ER) 75 Mg Cap.er.24h 225 MG PO HS (Reported) As needed Albuterol HFA (Proair HFA) 8.5 Gm Hfa.aer.ad 2 PUFFS INH q4-6 hours PRN PRN For Shortness of Breath (Reported) Albuterol Neb Soln (Albuterol Neb Soln) 1.25 Mg/3 Ml Vial.neb 1 VIAL IH QID PRN PRN For Shortness of Breath (Reported) Carisoprodol (Soma) 350 Mg Tablet 350 MG PO TID PRN PRN SPASMS (Reported) Furosemide (Furosemide) 20 Mg Tab 10 MG PO DAILY PRN PRN edema (Reported) Ipratropium/Albuterol Sulfate (Iprat-Albut 0.5-3(2.5) mg/3 mL Inhalant Soln) 3 Ml Ampul.neb 3 ML IH Q6 PRN PRN For Shortness of Breath (Reported) Trazodone (Trazodone) 50 Mg Tablet 50 MG PO HS PRN PRN For Insomnia (Reported) Do not combine with alcohol. oxyCODONE-Acetaminophen 10-325 mg (oxyCODONE-Acetaminophen 10-325 mg) 1 Each Tablet 1 TABLET PO q5-6 hours PRN PRN For Pain (Reported) Followup Plan Discharge Diet: Heart Healthy Discharge Activity: Limited until seen by PCP Patient Instructions You will continue a steroid taper for your COPD. Take 60 mg once daily for 3 days, 40 mg once daily for 3 days, 20 mg once daily for 3 days, and then 10 mg once daily for 3 days. Please follow up with your primary care provider as previously scheduled to discuss extending the steroid taper. If you experience worsening symptoms, then please return to the hospital. Continue all other medications as previously prescribed. Continue supplemental oxygen with a goal oxygen saturation of 89-92%. Follow up with your primary care provider within 1 week. Follow up with cardiology in 2-3 weeks. We strongly recommend you to stop using tobacco products. Follow-up Provider: Kaleb Billings DO Follow-up with PCP in: 1 week Provider: Logan Ornelas MD Follow-up in: 2 weeks (2-3 weeks) Time spent 40 minutes Attending Statement I have seen and evaluated patient at bedside in addition to directly supervising care provided by resident physician. I agree with above documentation. copies to: [facility]; Logan Ornelas MD, Marissa L DO Jun 09, 2016 17:50 Ricky Acevedo DO Jun 10, 2016 15:45
--- NOTE | 2016-06-09 19:33 | NUR ---
Discharge Patient departed unit via wheelchair, accompanied by staff and . Patient alert and oriented at time of discharge. Patient on room air, O2 sats mid 90's throughout the shift. Patient denies current shortness of breath or chest pain. Does report mild chest "pressure" mid sternal. Patient up independent in room. Eliminating normally. Discharge instructions/medications reviewed with patient and prior to discharge. All questions addressed. Patient belongings, discharge instructions and prescriptions in hand.
== END 2016-06-09 20:00 | disposition home or self-care (01) ==
LOC: SED 11:35 → EDBD 11:35 → EDUNIT# 11:35 → MPC 15:31
PROVIDERS: ADMIT Family Medicine; ATTEND Family Medicine
DX: J96.01 Acute respiratory failure with hypoxia (principal); J44.1 Chronic obstructive pulmonary disease with (acute) exacerbation; R07.9 Chest pain, unspecified; I10 Essential (primary) hypertension; I48.91 Unspecified atrial fibrillation; E03.9 Hypothyroidism, unspecified; M54.9 Dorsalgia, unspecified; G62.9 Polyneuropathy, unspecified; F32.9 Major depressive disorder, single episode, unspecified; G47.33 Obstructive sleep apnea (adult) (pediatric); K21.9 Gastro-esophageal reflux disease without esophagitis; Z86.73 Personal history of transient ischemic attack (TIA), and cerebral infarction without residual deficits; I25.2 Old myocardial infarction; E07.9 Disorder of thyroid, unspecified; I25.10 Atherosclerotic heart disease of native coronary artery without angina pectoris; F17.210 Nicotine dependence, cigarettes, uncomplicated; Z79.82 Long term (current) use of aspirin; Z79.52 Long term (current) use of systemic steroids; Z79.51 Long term (current) use of inhaled steroids; Z66 Do not resuscitate
CPT/HCPCS: 36415; 71010; 71275; 80048; 80053; 81000; 82308; 83880; 84484; 85025; 85379; 85610; 93005; 94640; 94664; 94799; 96374; 96375; 99285; G0378; J1644; J1815; J2930; J7030; J7620; Q9967

== ENCOUNTER 2016-08-29 19:24 | Emergency (ER) | payer OTHER ==
[~2016-08-29] VITALS: Ht 182.9 cm; Wt 79.5 kg
[~2016-08-29 19:24] MED LIST changes: +CLOP75TA28 PO; -NICO1PAT5 TRANSDERM; +NYST1000 ORAL; -PRE20 PO; +PRED-508 PO; -THIO300C PO
[2016-08-29 19:30] VITALS: BP 146/89; PULSE 69; RESP 16; O2SAT 94
[2016-08-29 20:27] LABS: BASOPHILS % (AUTO) 0.2 % (0-3); EOSINOPHILS % (AUTO) 0.2 % (0-5); MONOCYTES % (AUTO) 8.6 % (4-12); Mean Corpuscular Hemoglobin 29.2 pg (27.0-35.0); Mean Corpuscular Volume 89.3 fL (81-100); NEUTROPHILS % (AUTO) 70.4 % (40-74); Platelet Count 197 bil/L (150-400)
--- NOTE | 2016-08-29 20:29 | ED.REPORT ---
HPI-Abd Pain M 40 and Over Date of Service August 29, 2016 ED Provider: Dr. Ramos Pt is a 60 y/o male w/ a hx of diverticulitis s/p partial colectomy, GI bleed, ND, HTN, atrial fibrillation, presenting to the ED c/o left-sided abdominal pain onset 5 days ago. He has a history of diverticulitis and believes his symptoms today are very similar to then. He denies diarrhea, bloody stools, fever, chills, CP, SOB. He is also reporting focal right foot weakness for the past 2 months and has a plan to see a neurologist. Nursing Notes Stated Complaint: SEVERE PAIN/DIVERTICULITIS Chief Complaint: Male Abdominal Pain Nursing Notes Reviewed: Yes Allergies: Coded Allergies: No Known Allergies (Unverified Allergy, Unknown, 05/29/16) Scheduled Aspirin (Aspirin) 81 Mg Tablet 81 MG PO DAILY Atorvastatin (Lipitor) 20 Mg Tablet 20 MG PO HS Cholecalciferol (Vitamin D3) (Vitamin D3) 2,000 Unit Tablet 4,000 UNIT PO DAILY Clopidogrel (Clopidogrel) 75 Mg Tablet 75 MG PO DAILY Cyanocobalamin (Vitamin B12) 1,000 Mcg Tablet 1,000 MCG PO DAILY Fluticasone Propionate (Fluticasone Propionate Nasal) 16 Gm [place].susp 1 SPRAY NS BID Fluticasone/Salmeterol (Advair Hfa 230-21 Mcg Inhaler) 12 Gm Hfa.aer.ad 2 PUFF IH BID Levothyroxine (Levothyroxine) 50 Mcg Tablet 50 MCG PO QAM Lisinopril (Lisinopril) 10 Mg Tablet 10 MG PO DAILY Magnesium Oxide (Magnesium) 250 Mg Tablet 250 MG PO DAILY Metoprolol Succinate ER (Metoprolol Succinate ER) 25 Mg Tab.er.24h 25 MG PO DAILY Nystatin (Nystatin) 100,000 Unit/1 Ml Oral.susp 1 DOSE ORAL TID [place]-3/Dha/Epa/Fish Oil (Fish Oil 1,000 mg Softgel) 1 Each Capsule 1 EACH PO DAILY Pantoprazole (Pantoprazole DR) 20 Mg Tablet.dr 40 MG PO QAM Prednisone (Deltasone) 20 Mg Tablet 60 MG PO DIRECTED Take 60 mg once daily for 3 days, then 40 mg once daily for 3 days, then 20 mg once daily for 3 days, and then 10 mg once daily for 3 days Pregabalin (Lyrica) 50 Mg Capsule 150 MG PO TID Venlafaxine ER (Venlafaxine ER) 75 Mg Tab.er.24 150 MG PO QAM Venlafaxine ER (Venlafaxine ER) 75 Mg Cap.er.24h 225 MG PO HS Scheduled PRN Albuterol HFA (Proair HFA) 8.5 Gm Hfa.aer.ad 2 PUFFS INH q4-6 hours PRN PRN For Shortness of Breath Albuterol Neb Soln (Albuterol Neb Soln) 1.25 Mg/3 Ml Vial.neb 1 VIAL IH QID PRN PRN For Shortness of Breath Carisoprodol (Soma) 350 Mg Tablet 350 MG PO TID PRN PRN SPASMS Furosemide (Furosemide) 20 Mg Tab 10 MG PO DAILY PRN PRN edema Ipratropium/Albuterol Sulfate (Iprat-Albut 0.5-3(2.5) mg/3 mL Inhalant Soln) 3 Ml Ampul.neb 3 ML IH Q6 PRN PRN For Shortness of Breath Trazodone (Trazodone) 50 Mg Tablet 50 MG PO HS PRN PRN For Insomnia Do not combine with alcohol. oxyCODONE-Acetaminophen 10-325 mg (oxyCODONE-Acetaminophen 10-325 mg) 1 Each Tablet 1 TABLET PO q5-6 hours PRN PRN For Pain General Time Seen by MD: 20:29 Chief Complaint Abdominal pain Hx Obtained From: Patient Arrived By: Walk-in Sudden in Onset?: No Onset Occurred: 4 days ago Symptom Duration: Since onset Progression since Onset: Constant Location: : LLQ: LUQ Quality: Painful Severity: Current: Moderate Severity: Maximum: Moderate Recent Healthcare: Previous diagnosis Similar Sx Previous: Yes Past Medical History Past Medical History Hx diverticulitis GI bleed NSTEMI Hyperlipidemia Sleep apnea Peripheral neuropathy Neck injury in 1998 COPD Hypertension Transient ischemic attack 13-14 years ago Atrial fibrillation Hypothyroidism Chronic back pain Depression Hx pneumonia Past Surgical History Partial colectomy for diverticulitis Cervical spine discectomy Rhinoseptoplasty Family History No family history of coronary artery disease Mother and father both alive and well. Smoking History Current Every Day Smoker Social History Alcohol Use: Denies alcohol use Drug Use: Denies drug use Ambulatory Status Independent Review of Systems Constitutional: Denies: Chills, Fever Cardiovascular: Denies: Chest pain, Dyspnea on exertion GI: Reports: Abdominal pain, Denies: Bloody/tarry stool, Diarrhea Complete sys rev & neg: except as marked. Physical Exam Initial Vital Signs Vital Signs (First) Date Time Temp Pulse Resp B/P Pulse Ox O2 Delivery O2 Flow Rate FiO2 08/29/16 19:30 36.7 69 16 146/89 94 Room Air 08/29/16 22:51 2 Initial VS: Reviewed, Vital signs abnormal Head / Eyes: Atraumatic, Normocephalic, PERRL ENT: Mucous membranes moist, Conjunctiva normal, No scleral icterus Neck: Supple, Full range of motion Skin: Warm, Dry, No cyanosis Neurologic: Alert, Oriented, Nonfocal Psychiatric: Mood/affect normal, Behavior normal, Normal thought content General/Constitutional: Awake, Alert, No acute distress, Cooperative, Not toxic appearing Respiratory / Chest: Breath sounds NL, Breath sounds = bilat, No respiratory distress, No rales, No rhonchi, No wheezing, No retractions, No stridor, No chest tenderness Cardiovascular: Heart rate NL, Regular rhythm, Heart sounds NL, No gallop, No murmurs, No rubs, Cap refill not delayed, Peripheral circulation NL Abdomen: Atraumatic, Soft, No guarding, No rebound, No distention Tenderness/Guarding/Rebound: Positive: Tender LLQ... (Moderate) Back: Full range of motion, Painless range of motion Lower Extremity / Pelvis / MS: Atraumatic, No swelling, Non-tender, No erythema , No deformity, Vascular intact Right drop foot Interpretation & Diagnostics Lab Results Interpretation Result Diagram: 08/29/16202108/29/162021 Test 08/29/16 20:22 08/29/16 20:50 08/29/16 23:13 White Blood Count 14.6th/mm3 (3.8-10.1) Red Blood Count 5.52mil/mm3 (4.40-5.80) Hemoglobin 16.1g/dL (13.8-17.2) Hematocrit 49.3% (41.0-50.0) Mean Corpuscular Volume 89.3fL (81-100) Mean Corpuscular Hemoglobin 29.2pg (27.0-35.0) Mean Corpuscular Hemoglobin Concent 32.7% (32.0-37.0) Red Cell Distribution Width 14.9% (12.3-15.4) Platelet Count 197bil/L (150-400) Neutrophils (%) (Auto) 70.4% (40-74) Lymphocytes (%) (Auto) 20.4% (14-46) Monocytes (%) (Auto) 8.6% (4-12) Eosinophils (%) (Auto) 0.2% (0-5) Basophils (%) (Auto) 0.2% (0-3) Sodium Level 146mEq/L (134-144) Potassium Level 3.8mEq/L (3.5-5.2) Chloride Level 104mEq/L (97-108) Carbon Dioxide Level 30mmol/L (18-29) Blood Urea Nitrogen 11mg/dL (6-24) Creatinine 1.04mg/dL (0.76-1.27) Estimat Glomerular Filtration Rate 78mL/min (>59) Glucose Level 113mg/dL (60-99) Calcium Level 9.7mg/dL (8.5-10.1) Total Bilirubin 0.4mg/dL (0.0-1.2) Aspartate Amino Transf (AST/SGOT) 12U/L (0-50) Alanine Aminotransferase (ALT/SGPT) 14U/L (0-44) Alkaline Phosphatase 75U/L (25-150) Total Protein 6.8g/dL (6.4-8.4) Albumin 4.4g/dL (3.4-5.0) Lipase 25U/L (13-60) Hold Purple Top Tube Received (Received) Hold Blue Top Tube Received (Received) Hold Red Top Tube Received (Received) Hold [place] Top Tube Received (Received) Hold [place] Top Tube Received (Received) Urine Color Yellow (YELLOW) Urine Appearance Clear (CLEAR,HAZY) Urine pH 7.5 (5.0-8.0) Urine Specific [place] 1.024 (1.003-1.035) Urine Protein Negativemg/dL (NEG,TRACE) Urine Glucose (UA) Negativemg/dL (NEGATIVE) Urine Ketones Negativemg/dL (NEGATIVE) Urine Occult Blood Negative (NEGATIVE) Urine Nitrite Negative (NEGATIVE) Urine Bilirubin Negative (NEGATIVE) Urine Urobilinogen Normalmg/dL (NORMAL) Urine Leukocyte Esterase Negative (NEGATIVE) Urine RBC 0-2/hpf (0-2) Urine WBC 0-5/hpf (0-5) Urine Epithelial Cells Occasional/hpf (NONE-MOD) Urine Crystals Amorphous phosphates Urine Bacteria None/hpf (NONE-FEW) Urine Hyaline Casts None/lpf (NONE) Urine Granular Casts None seen (NONE SEEN) Urine Waxy Casts None seen (NONE SEEN) Urine Red Blood Cell Casts None seen (NONE SEEN) Urine White Blood Cell Casts None seen (NONE SEEN) Urine Mucus None seen (None Seen) Urine Trichomonas None seen (NONE SEEN) Urine Yeast None (NONE SEEN) Urine Culture Reflexed Not indicated Pulse Oximetry Interpretation Pulse Oximetry: Pulse Ox NL for patient, On room air CBC Interpretation CBC normal except, WBC elevated BMP / CMP Interpretation BMP/CMP normal CT Abd / Pelvis Interpretation IMPRESSION: 1. No evidence of diverticulitis. 2. Moderate fecal loading throughout the colon. Please correlate with clinical data. 3. Left adrenal adenoma stable compared to prior examinations. 4. 1.2 cm right retrocrural lymphadenopathy which be reactive or neoplastic. 5. The appendix is normal. 6. 6 mm right renal angiomyolipoma stable compared to prior exams. Dictated by: Jerica Rodas MD, PhD on 08/29/2016 at 21:18 Approved by: Jerica Rodas MD, PhD on 08/29/2016 at 21:29 Study type: Abdominal CT IV contrast Interpretation / Wet Read by: Interpret - Radiologist Re-Eval/Medical Decision Time of Eval: 22:49 Re-Evaluation/Progress Note: Pt rechecked. Remains quite tender LLQ. Informed pt of need for admission. Pt understands and agrees with plan for admission. All questions addressed. Time of Eval: 23:08 Re-Evaluation/Progress Note: Informed pt of discharge considering normal CT with oral abx and close follow-up. Pt understands and agrees with plan for treatment. F/U instructions and RTER warnings given. All questions addressed. Consultation : Referral / Consult Name: Balbir Worley MD Consulted With: Hospitalist Call Returned at: 23:03 Note: Recommends discharge with oral abx considering normal CT. Counseled Regarding: Diagnosis, Lab results, Need for follow-up, When/why to return to ED Discharge & Departure Primary Impression: Abdominal pain, acute, left lower quadrant Additional Impressions: Leukocytosis Leukocytosis type: unspecified Qualified Code: D72.829 - Elevated white blood cell count, unspecified Intra-abdominal lymphadenopathy Disposition: Home Vital Signs - All Vital Signs Date Time Temp Pulse Resp B/P Pulse Ox O2 Delivery O2 Flow Rate FiO2 08/29/16 23:07 36.7 72 17 138/86 93 Nasal Cannula 2 08/29/16 22:51 36.6 70 16 136/83 93 Nasal Cannula 2 08/29/16 19:30 36.7 69 16 146/89 94 Room Air )( All Prior VS Reviewed: Yes Condition: Stable Patient Instructions: Acute Abdominal Pain (ED) Additional Instructions: The cause of your pain is uncertain. The CAT scan did not show evidence of diverticulitis however you certainly could still have very early diverticulitis. Take Augmentin twice daily for 7 days. Use your pain medication as prescribed. Come back tomorrow or see your doctor for a recheck. If you develop a fever or vomiting or any new or worrisome symptoms then be seen right away. Do not drive today due to receiving sedating medications. If you develop diarrhea then have stool testing for Clostridium difficile infection. Referrals: Kaleb Billings DO (PCP) Latisha Attestation Portions of this note were transcribed by Dom Adkins. I, Dr. Ramos personally performed the history, physical exam and medical decision-making; I reviewed and confirmed the accuracy of the information in the transcribed note. Signed by Latisha Leiva, 08/29/162044 copies to: Kaleb Billings Todd P DO August 29, 2016 20:29 DOM ADKINS August 29, 2016 20:39
[2016-08-29] MEDS ORDERED: Piperacillin-Tazo 3.375 Gm Inj 3.375 GM in Dextrose 5% Minibag Plus 50 ML IV ONE (20:35)
[2016-08-29] MEDS ORDERED: 0.9% Sodium Chloride 1,000 ML IV ONE (20:35)
[2016-08-29] MEDS: HYDROmorphone 0.5 mg/0.5 mL iSecure Syringe IVPUSH PRN ×4 (20:50→23:46)
--- NOTE | 2016-08-29 21:31 | DRSVH ---
PROCEDURE: CT ABDOMEN AND PELVIS WITH CONTRAST ([id number]) INDICATIONS: LLQ pain, hx of diverticulitis, 14K wbc count TECHNIQUE: After the administration of intravenous contrast, 5 mm thick sections acquired from the diaphragm to the symphysis. 5 mm coronal and sagittal reformats were acquired. For radiation dose reduction, the following was used: automated exposure control, adjustment of mA and/or kV according to patient guillermo estrada. COMPARISON: [facility], CT, CT ANGIO CHEST PE, 06/08/2016, 13:57. [facility] , CT, CT ANGIO CHEST PE, 07/07/2015, 15:37. FINDINGS: Image quality: Excellent. ABDOMEN: Lung bases: Lung bases are clear. Heart size is normal. Solid organs: Liver and spleen are normal in size and enhancement. Gallbladder is within normal greer its. Biliary system is non dilated. Pancreas enhances normally. 2.7 cm left adrenal adenoma stable compared to prior examinations. Kidneys demonstrate normal size and enhancement, without hydronephro sis. 6 mm fat density lesions is in the superior pole of the right kidney compatible with renal angio myolipoma. Peritoneum and bowel: Bowel loops demonstrate normal wall thickness and caliber. Moderate amount of stool noted throughout the colon. Sutures noted in the sigmoid colon. No free fluid or air. The appendix is normal. Nodes and vessels: 4 cm right retrocrural lymph node is noted. Aorta and inferior vena cava are nor mal in size. Scattered atherosclerotic calcifications are noted in the abdominal and pelvic vasculatu re. Miscellaneous: No ventral hernias. PELVIS: Genitourinary: Bladder wall thickness is normal. Miscellaneous: No inguinal hernias or adenopathy. Bones: No suspicious bony lesions. No vertebral body compression fractures. Spine degenerative dis ease and facet arthropathy noted. IMPRESSION: 1. No evidence of diverticulitis. 2. Moderate fecal loading throughout the colon. Please correlate with clinical data. 3. Left adrenal adenoma stable compared to prior examinations. 4. 1.2 cm right retrocrural lymphadenopathy which be reactive or neoplastic. 5. The appendix is normal. 6. 6 mm right renal angiomyolipoma stable compared to prior exams. Dictated by: Jerica Rodas MD, PhD on 08/29/2016 at 21:18 Approved by: Jerica Rodas MD, PhD on 08/29/2016 at 21:29
[2016-08-29 22:51] VITALS: BP 136/83; PULSE 70; RESP 16; O2SAT 93
[2016-08-29] MEDS ORDERED: HYDROmorphone 1 mg/mL Inj IVPUSH ONE (22:55)
[2016-08-29 23:07] VITALS: BP 138/86; PULSE 72; RESP 17; O2SAT 93
[2016-08-29 23:22] LABS: APPEARANCE,URINE CLEAR (CLEAR,HAZY); COLOR,URINE YELLOW (YELLOW); OCCULT BLOOD,URINE NEGATIVE (NEGATIVE); PH,URINE 7.5 (5.0-8.0); UROBILINOGEN,URINE NORMAL (NORMAL)
[2016-08-30] MEDS ORDERED: Sodium Chloride LOK Flush 10 mL Syringe IVFLUSH SCH (00:30)
== END 2016-08-30 | disposition home or self-care (01) ==
LOC: SED 19:24
DX: R10.32 Left lower quadrant pain (principal); D72.829 Elevated white blood cell count, unspecified; R59.0 Localized enlarged lymph nodes; R53.1 Weakness; I11.9 Hypertensive heart disease without heart failure; I48.91 Unspecified atrial fibrillation; I25.2 Old myocardial infarction; J44.9 Chronic obstructive pulmonary disease, unspecified; F32.9 Major depressive disorder, single episode, unspecified; E03.9 Hypothyroidism, unspecified; E78.5 Hyperlipidemia, unspecified; F17.200 Nicotine dependence, unspecified, uncomplicated; Z86.73 Personal history of transient ischemic attack (TIA), and cerebral infarction without residual deficits; Z90.49 Acquired absence of other specified parts of digestive tract; Z79.82 Long term (current) use of aspirin
CPT/HCPCS: 36415; 74177; 80053; 81000; 83690; 85025; 96365; 96375; 96376; 99285; J1170; J2543; J7030; Q9967